=== PATIENT | male | born 1985 | race Caucasian/White ===

== ENCOUNTER 2017-11-12 15:33 | Emergency (ER) | payer OTHER ==
[2017-11-12] MEDS ORDERED: MORPHINE SULFATE 2 MG/ML SYRINGE IVP STA (16:01)
[2017-11-12] MEDS ORDERED: ONDANSETRON 4 MG/2 ML VIAL IVP STA (16:01)
[2017-11-12] MEDS ORDERED: SODIUM CHLORIDE 0.9% 1,000 ML IV STA (16:01)
--- NOTE | 2017-11-12 16:07 | ED ---
General Adult HPI <Carson Carey - Last Filed: 11/12/17 18:51> - General Source: patient, family, RN notes reviewed Mode of arrival: ambulatory Limitations: no limitations <Wei Valladares - Last Filed: 11/12/17 18:58> - General Chief complaint: Abdominal Pain Stated complaint: severe abd pain; nausea; constipation Time Seen by Provider: 11/12/17 15:52 - History of Present Illness Initial comments: Patient 31-year-old male significant past medical history for kidney transplant , presenting to the emergency room today with a chief complaint of increased abdominal pain over the last hour and a half. Does not that he was at work just driving when he began having increased pain in the middle of his abdomen. Patient does admit that he feels like the pain comes in waves. Currently rates it a 7/10. Does admit that he can feel a hard spot in the skin just above the bellybutton. Patient denies any other complaints. Patient also admits that he felt somewhat constipated earlier today. Patient denies any other complaints. States he did have bowel movement today. (Wei Valladares) - Related Data Home Medications Medication Instructions Recorded Confirmed Carvedilol [Coreg] 12.5 mg PO BID 12/31/14 11/12/17 Mycophenolate Mofetil [Cellcept] 1,000 mg PO BID 12/31/14 11/12/17 Tacrolimus [Prograf] 1 mg PO HS 12/31/14 11/12/17 Tacrolimus [Prograf] 2 mg PO DAILY 12/31/14 11/12/17 amLODIPine [Norvasc] 10 mg PO DAILY 12/31/14 11/12/17 Allergies Allergy/AdvReac Type Severity Reaction Status Date / Time Iodinated Contrast- Oral and Allergy Unknown Verified 11/12/17 15:44 IV Dye [Iodinated Contrast Media - IV Dye] shellfish derived [Shellfish] Allergy Unknown Verified 11/12/17 15:44 Review of Systems ROS Other: All systems not noted in ROS Statement are negative. <Carson Carey - Last Filed: 11/12/17 18:51> ROS Other: All systems not noted in ROS Statement are negative. <Wei Valladares - Last Filed: 11/12/17 18:58> ROS Statement: Those systems with pertinent positive or pertinent negative responses have been documented in the HPI. Past Medical History Past Medical History: Hypertension, Renal Disease History of Any Multi-Drug Resistant Organisms: None Reported Additional Past Surgical History / Comment(s): kidney transplant, peritoneal diaysis cath Past Psychological History: Anxiety, Depression Smoking Status: Never smoker Past Alcohol Use History: None Reported Past Drug Use History: None Reported <Wei Valladares - Last Filed: 11/12/17 18:58> General Exam <Carson Carey - Last Filed: 11/12/17 18:51> Limitations: no limitations <Wei Valladares - Last Filed: 11/12/17 18:58> - General Exam Comments Initial Comments: General: The patient is awake and alert, in mild distress. Eye: Pupils are equal, round and reactive to light, extra-ocular movements are intact. No nystagmus. There is normal conjunctiva bilaterally. No signs of icterus. Ears, nose, mouth and throat: There are moist mucous membranes and no oral lesions. Neck: The neck is supple, there is no tenderness or JVD. Cardiovascular: There is a regular rate and rhythm. No murmur, rub or gallop is appreciated. Respiratory: Lungs are clear to auscultation, respirations are non-labored, breath sounds are equal. No wheezes, stridor, rales, or rhonchi. Gastrointestinal: Abdomen soft on palpation. Mild tenderness midline just below the umbilicus. Hernia palpated just above the umbilicus No rebound, guarding, CVA tenderness Musculoskeletal: Normal ROM, no tenderness. Strength 5/5. Sensation intact. Pulses equal bilaterally 2+. Neurological: A&O x 3. CN II-XII intact, There are no obvious motor or sensory deficits. Coordination appears grossly intact. Speech is normal. Skin: Skin is warm and dry and no rashes or lesions are noted. Psychiatric: Cooperative, appropriate mood & affect, normal judgment. (Wei Valladares) Course <Carson Carey - Last Filed: 11/12/17 18:51> <Wei Valladares - Last Filed: 11/12/17 18:58> Vital Signs 11/12/17 11/12/17 15:44 18:52 Temperature 98.3 F 97.9 F Pulse Rate 96 86 Respiratory 20 18 Rate Blood Pressure 133/92 126/76 O2 Sat by Pulse 99 98 Oximetry - Reevaluation(s) Reevaluation #1: 11/12/17 18:51 PA supervision did personally do a [id number] evaluation the patient did examine him. It is time I examination he was pain-free no evidence of any hernia at this time. Computed tomography scan did show thickened pain. Umbilical hernia which demonstrates induration of fat and a degree of mild inflammatory change discuss the case with Dr. Diaz. Patient be discharged with follow-up. (Carson Carey) Medical Decision Making - Lab Data Result diagrams: 11/12/17 14:15 11/12/17 14:15 <Carson Carey - Last Filed: 11/12/17 18:51> - Lab Data Result diagrams: 11/12/17 14:15 11/12/17 14:15 <Wei Valladares - Last Filed: 11/12/17 18:58> - Medical Decision Making Patient's CT of the abdomen and pelvis reviewed shows 1. There is a fat- containing periumbilical hernia which demonstrates induration of that and reactive mild inflammatory change. 2. Prominence of the small bowel loops in the left abdomen without definite transition point. Differential diagnosis included a localized ileus or enteritis. Case was discussed with attending physician Dr. Aurelio ortez at bedside. Discussed case with surgery insulation batting machine operator Dr. hancock with this time recommends the patient may follow-up in the office. Patient's hernia was able to be reduced here in the emergency room after pain medication. He is feeling comfortable at this time. (Wei Valladares) - Lab Data Lab Results 11/12/17 11/12/17 Range/Units 14:15 14:15 WBC 5.3 (3.8-10.6) k/uL RBC 5.39 (4.30-5.90) m/uL Hgb 16.0 (13.0-17.5) gm/dL Hct 47.6 (39.0-53.0) % MCV 88.2 (80.0-100.0) fL MCH 29.7 (25.0-35.0) pg MCHC 33.6 (31.0-37.0) g/dL RDW 13.4 (11.5-15.5) % Plt Count 257 (150-450) k/uL Neutrophils % 70 % Lymphocytes % 15 % Monocytes % 8 % Eosinophils % 5 % Basophils % 0 % Neutrophils # 3.7 (1.3-7.7) k/uL Lymphocytes # 0.8 L (1.0-4.8) k/uL Monocytes # 0.4 (0-1.0) k/uL Eosinophils # 0.3 (0-0.7) k/uL Basophils # 0.0 (0-0.2) k/uL Sodium 142 (137-145) mmol/L Potassium 3.7 (3.5-5.1) mmol/L Chloride 103 (98-107) mmol/L Carbon Dioxide 23 (22-30) mmol/L Anion Gap 16 mmol/L BUN 8 L (9-20) mg/dL Creatinine 0.84 (0.66-1.25) mg/dL Est GFR (CKD-EPI)AfAm >90 (>60 ml/min/1.73 sqM) Est GFR (CKD-EPI)NonAf >90 (>60 ml/min/1.73 sqM) Glucose 104 H (74-99) mg/dL Calcium 9.8 (8.4-10.2) mg/dL Total Bilirubin 0.7 (0.2-1.3) mg/dL AST 25 (17-59) U/L ALT 32 (21-72) U/L Alkaline Phosphatase 72 (38-126) U/L Total Protein 7.6 (6.3-8.2) g/dL Albumin 4.8 (3.5-5.0) g/dL Amylase 53 (30-110) U/L Lipase 70 (23-300) U/L Disposition <Carson Carey - Last Filed: 11/12/17 18:51> Is patient prescribed a controlled substance at d/c from ED?: No Time of Disposition: 18:56 <Wei Valladares - Last Filed: 11/12/17 18:58> Clinical Impression: Umbilical hernia Disposition: HOME SELF-CARE Condition: Good Instructions: Umbilical Hernia (ED) Additional Instructions: Please follow-up with the family doctor and general surgeon as discussed. Please hold pressure to the area few have to cough, sneeze, or should movements. No heavy lifting. Please return to emergency room if symptoms increase worsen or for concerns as discussed. Referrals: Tripp Crowley DO [Primary Care Provider] - 1-2 days Wei Diaz MD [Medical Doctor] - 1-2 days Kody Mena MD [STAFF PHYSICIAN] - 1-2 days
[2017-11-12 16:24] LABS: Basophils % (A) 0 %; Eosinophils # (A) 0.3 k/uL (0-0.7); Eosinophils % (A) 5 %; HCT 47.6 % (39.0-53.0); Lymphocytes # (A) 0.8 k/uL (1.0-4.8); Lymphocytes % (A) 15 %; MCH 29.7 pg (25.0-35.0); MCHC 33.6 g/dL (31.0-37.0); MCV 88.2 fL (80.0-100.0); Mean Platelet Volume 6.7; Monocytes # (A) 0.4 k/uL (0-1.0); Monocytes % (A) 8 %; Neutrophils # (A) 3.7 k/uL (1.3-7.7); Neutrophils % (A) 70 %; Platelet Count 257 k/uL (150-450); RBC 5.39 m/uL (4.30-5.90); RDW 13.4 % (11.5-15.5); WBC 5.3 k/uL (3.8-10.6)
[2017-11-12 16:44] LABS: ALT 32 U/L (21-72); AST 25 U/L (17-59); Albumin 4.8 g/dL (3.5-5.0); Alkaline Phosphatase 72 U/L (38-126); Amylase 53 U/L (30-110); Anion Gap 16 mmol/L; Blood Urea Nitrogen 8 mg/dL (9-20); Calcium 9.8 mg/dL (8.4-10.2); Carbon Dioxide 23 mmol/L (22-30); Chloride 103 mmol/L (98-107); Glucose 104 mg/dL (74-99); Lipase 70 U/L (23-300); Potassium 3.7 mmol/L (3.5-5.1); Sodium 142 mmol/L (137-145); Total Bilirubin 0.7 mg/dL (0.2-1.3); Total Protein 7.6 g/dL (6.3-8.2)
--- NOTE | 2017-11-12 17:48 | CT ---
EXAMINATION TYPE: CT abdomen pelvis wo con DATE OF EXAM: 11/12/2017 COMPARISON: NONE HISTORY: Umbilical abdominal pain, nausea and constipation. CT DLP: 1322.2 mGycm Automated exposure control for dose reduction was used. TECHNIQUE: Helical acquisition of images was performed from the lung bases through the pelvis. FINDINGS: LUNG BASES: Subsegmental changes at both lung bases are suggestive of atelectasis. LIVER/GB: No significant abnormality is appreciated. PANCREAS: No significant abnormality is seen. SPLEEN: No significant abnormality is seen. ADRENALS: No significant abnormality is seen. KIDNEYS: . Kidneys are virtually nonrecognizable compatible with severe chronic medical renal disease . No evidence of hydronephrosis within the renal transplant within the left pelvis. There is a calcif ication within the cortex of the atrophic right kidney and a 1 cm hypodense lesion too small to olive cterize by noncontrast technique. FREE AIR: No free air is visualized URINARY BLADDER: No significant abnormality is seen. ADENOPATHY: None visualized. OSSEOUS STRUCTURES: No significant abnormality is seen. BOWEL: There are dilated bowel loops in the midabdomen on the left. No definite inflammatory changes . OTHER: There is a fat-containing periumbilical hernia. The fat appears to be indurated correlate for inflammation. IMPRESSION: 1. There is a fat-containing periumbilical hernia which demonstrates induration of fat and a degree o f mild inflammatory change. Correlate clinically. 2. Prominence of small bowel loops in the left abdomen without definite transition point. Differentia l diagnosis would include a localized ileus or enteritis. Correlate clinically. Renal transplant with no diagnostic evidence of obstruction.
[2017-11-12 18:56] LABS: Appearance,Urine Clear (Clear); Bilirubin,Urine Negative (Negative); Blood,Urine Negative (Negative); Color,Urine Light Yellow; Glucose,Urine (UA) Negative (Negative); Ketones,Urine Negative (Negative); Leukocyte Esterase,Urine Negative (Negative); Nitrite,Urine Negative (Negative); PH, Urine 7.5 (5.0-8.0); Protein,Urine Negative (Negative); Urobilinogen,Urine <2.0 mg/dL (<2.0)
[2017-11-12 19:18] VITALS: BP 112/61; PULSE 78; RESP 16; TEMP 98.2
== END 2017-11-12 19:18 | disposition home or self-care (01) ==
LOC: EC 15:33
DX: K42.9 Umbilical hernia without obstruction or gangrene (principal); K59.00 Constipation, unspecified; I12.9 Hypertensive chronic kidney disease with stage 1 through stage 4 chronic kidney disease, or unspecified chronic kidney disease; N18.9 Chronic kidney disease, unspecified; Z94.0 Kidney transplant status; Z79.899 Other long term (current) drug therapy; Z91.013 Allergy to seafood; Z91.041 Radiographic dye allergy status
CPT/HCPCS: 36415; 80053; 82150; 83690; 85025; 81003; 74176; 99284; 96374; 96375; 96361 ×2; J2405; J2270

== ENCOUNTER 2018-03-01 11:26 | Emergency (ER) | payer OTHER ==
[2018-03-01 11:38] VITALS: TEMP 98.2
--- NOTE | 2018-03-01 12:07 | ED ---
General Adult HPI - General Chief complaint: Recheck/Abnormal Lab/Rx Stated complaint: High Blood Pressure Time Seen by Provider: 03/01/18 11:58 Source: patient, RN notes reviewed Mode of arrival: ambulatory Limitations: no limitations - History of Present Illness Initial comments: This a 32-year-old male presents emergency Department chief complaint of denies is not feeling right. Patient states he woke up this morning felt shaky and states that he's had some sinus congestion. Patient states that he is concerned that his blood pressure may be elevated states that he checked it was 150/80 something. Patient states that he has a history of renal transplant and is on 3 different blood pressure medications. He states he was concerned taking the emergency department. Patient denies any current chest pain, shortness breath, headache, dizziness, blurred vision, abdominal pain, nausea vomiting. Patient states his renal transplant was 5 years ago. - Related Data Home Medications Medication Instructions Recorded Confirmed Carvedilol [Coreg] 12.5 mg PO BID 12/31/14 11/12/17 Mycophenolate Mofetil [Cellcept] 1,000 mg PO BID 12/31/14 11/12/17 Tacrolimus [Prograf] 1 mg PO HS 12/31/14 11/12/17 Tacrolimus [Prograf] 2 mg PO DAILY 12/31/14 11/12/17 amLODIPine [Norvasc] 10 mg PO DAILY 12/31/14 11/12/17 Allergies Allergy/AdvReac Type Severity Reaction Status Date / Time Iodinated Contrast- Oral and Allergy Unknown Verified 11/12/17 15:44 IV Dye [Iodinated Contrast Media - IV Dye] shellfish derived [Shellfish] Allergy Unknown Verified 11/12/17 15:44 Review of Systems ROS Statement: Those systems with pertinent positive or pertinent negative responses have been documented in the HPI. ROS Other: All systems not noted in ROS Statement are negative. Past Medical History Past Medical History: Hypertension, Renal Disease Additional Past Medical History / Comment(s): kidney transplant dialysis in past History of Any Multi-Drug Resistant Organisms: None Reported Additional Past Surgical History / Comment(s): kidney transplant, peritoneal diaysis cath Past Psychological History: Anxiety, Depression Smoking Status: Never smoker Past Alcohol Use History: None Reported Past Drug Use History: None Reported General Exam Limitations: no limitations General appearance: alert, in no apparent distress Head exam: Present: atraumatic, normocephalic, normal inspection Eye exam: Present: normal appearance, PERRL, EOMI. Absent: scleral icterus, conjunctival injection, periorbital swelling ENT exam: Present: normal exam, mucous membranes moist Neck exam: Present: normal inspection. Absent: tenderness, meningismus, lymphadenopathy Respiratory exam: Present: normal lung sounds bilaterally. Absent: respiratory distress, wheezes, rales, rhonchi, stridor Cardiovascular Exam: Present: regular rate, normal rhythm, normal heart sounds. Absent: systolic murmur, diastolic murmur, rubs, gallop, clicks GI/Abdominal exam: Present: soft, normal bowel sounds. Absent: distended, tenderness, guarding, rebound, rigid Back exam: Absent: CVA tenderness (R), CVA tenderness (L) Neurological exam: Present: alert, oriented X3, CN II-XII intact, reflexes normal. Absent: motor sensory deficit Skin exam: Present: warm, dry, intact, normal color. Absent: rash Course Vital Signs 03/01/18 03/01/18 11:35 12:38 Temperature 98.2 F Pulse Rate 103 H 86 Respiratory 18 19 Rate Blood Pressure 142/85 139/84 O2 Sat by Pulse 99 98 Oximetry Medical Decision Making - Medical Decision Making 32-year-old male presents emergency from conservative her hypertension. Patient blood pressure is elevated this time. Patient had lab work secondary to his history of renal failure. Lab work is unremarkable. Patient has no signs of infection has normal vitals. Patient will be discharged return parameters discussed. - Lab Data Result diagrams: 03/01/18 12:33 03/01/18 12:33 Lab Results 03/01/18 03/01/18 03/01/18 Range/Units 12:33 12:33 12:40 WBC 7.6 (3.8-10.6) k/uL RBC 5.40 (4.30-5.90) m/uL Hgb 16.2 (13.0-17.5) gm/dL Hct 48.9 (39.0-53.0) % MCV 90.6 (80.0-100.0) fL MCH 30.0 (25.0-35.0) pg MCHC 33.2 (31.0-37.0) g/dL RDW 13.2 (11.5-15.5) % Plt Count 273 (150-450) k/uL Neutrophils % 82 % Lymphocytes % 9 % Monocytes % 7 % Eosinophils % 2 % Basophils % 0 % Neutrophils # 6.2 (1.3-7.7) k/uL Lymphocytes # 0.7 L (1.0-4.8) k/uL Monocytes # 0.5 (0-1.0) k/uL Eosinophils # 0.1 (0-0.7) k/uL Basophils # 0.0 (0-0.2) k/uL Sodium 140 (137-145) mmol/L Potassium 4.3 (3.5-5.1) mmol/L Chloride 106 (98-107) mmol/L Carbon Dioxide 27 (22-30) mmol/L Anion Gap 7 mmol/L BUN 10 (9-20) mg/dL Creatinine 0.84 (0.66-1.25) mg/dL Est GFR (CKD-EPI)AfAm >90 (>60 ml/min/1.73 sqM) Est GFR (CKD-EPI)NonAf >90 (>60 ml/min/1.73 sqM) Glucose 102 H (74-99) mg/dL Calcium 10.1 (8.4-10.2) mg/dL Magnesium 1.8 (1.6-2.3) mg/dL Total Bilirubin 0.4 (0.2-1.3) mg/dL AST 28 (17-59) U/L ALT 30 (21-72) U/L Alkaline Phosphatase 86 (38-126) U/L Total Protein 8.3 H (6.3-8.2) g/dL Albumin 4.7 (3.5-5.0) g/dL Amylase 64 (30-110) U/L Lipase 269 (23-300) U/L TSH 2.310 (0.465-4.680) mIU/L Urine Color Colorless Urine Appearance Clear (Clear) Urine pH 7.0 (5.0-8.0) Ur Specific [place] 1.004 (1.001-1.035) Urine Protein Negative (Negative) Urine Glucose (UA) Negative (Negative) Urine Ketones Negative (Negative) Urine Blood Negative (Negative) Urine Nitrite Negative (Negative) Urine Bilirubin Negative (Negative) Urine Urobilinogen <2.0 (<2.0) mg/dL Ur Leukocyte Esterase Negative (Negative) Disposition Clinical Impression: Encounter for blood pressure examination, Malaise, Hx of kidney transplant Disposition: HOME SELF-CARE Condition: Stable Instructions: Hypertension (ED) Additional Instructions: Please return to the Emergency Department if symptoms worsen or any other concerns. Is patient prescribed a controlled substance at d/c from ED?: No Referrals: Tripp Crowley DO [Primary Care Provider] - 1-2 days Time of Disposition: 13:44
[2018-03-01 13:03] LABS: Basophils % (A) 0 %; Eosinophils # (A) 0.1 k/uL (0-0.7); Eosinophils % (A) 2 %; HCT 48.9 % (39.0-53.0); HGB 16.2 gm/dL (13.0-17.5); Lymphocytes # (A) 0.7 k/uL (1.0-4.8); Lymphocytes % (A) 9 %; MCHC 33.2 g/dL (31.0-37.0); MCV 90.6 fL (80.0-100.0); Mean Platelet Volume 6.9; Monocytes # (A) 0.5 k/uL (0-1.0); Monocytes % (A) 7 %; Neutrophils # (A) 6.2 k/uL (1.3-7.7); Neutrophils % (A) 82 %; Platelet Count 273 k/uL (150-450); RDW 13.2 % (11.5-15.5); WBC 7.6 k/uL (3.8-10.6)
[2018-03-01 13:07] LABS: Appearance,Urine Clear (Clear); Bilirubin,Urine Negative (Negative); Blood,Urine Negative (Negative); Color,Urine Colorless; Glucose,Urine (UA) Negative (Negative); Ketones,Urine Negative (Negative); Leukocyte Esterase,Urine Negative (Negative); Nitrite,Urine Negative (Negative); Protein,Urine Negative (Negative); Specific Gravity,Urine 1.004 (1.001-1.035); Urobilinogen,Urine <2.0 mg/dL (<2.0)
[2018-03-01 13:07] LABS: ALT 30 U/L (21-72); AST 28 U/L (17-59); Albumin 4.7 g/dL (3.5-5.0); Alkaline Phosphatase 86 U/L (38-126); Amylase 64 U/L (30-110); Anion Gap 7 mmol/L; Blood Urea Nitrogen 10 mg/dL (9-20); Calcium 10.1 mg/dL (8.4-10.2); Carbon Dioxide 27 mmol/L (22-30); Chloride 106 mmol/L (98-107); Glucose 102 mg/dL (74-99); Lipase 269 U/L (23-300); Magnesium 1.8 mg/dL (1.6-2.3); Potassium 4.3 mmol/L (3.5-5.1); Sodium 140 mmol/L (137-145); Total Bilirubin 0.4 mg/dL (0.2-1.3); Total Protein 8.3 g/dL (6.3-8.2)
[2018-03-01 13:54] VITALS: BP 121/75; PULSE 97; RESP 18
== END 2018-03-01 13:54 | disposition home or self-care (01) ==
LOC: EC 11:26
DX: I10 Essential (primary) hypertension (principal); R53.83 Other fatigue; Z94.0 Kidney transplant status; Z79.899 Other long term (current) drug therapy; Z91.041 Radiographic dye allergy status; Z91.013 Allergy to seafood
CPT/HCPCS: 36415; 80053; 81003; 82150; 83690; 83735; 84443; 85025; 99283

== ENCOUNTER 2018-09-03 18:10 | Emergency (ER) | payer OTHER ==
[2018-09-03 18:43] VITALS: BP 152/99; PULSE 103; RESP 18; TEMP 98.7
[2018-09-03] MEDS ORDERED: FAMOTIDINE 20 MG TAB PO STA (18:59)
[2018-09-03] MEDS ORDERED: diphenhydrAMINE 50 MG CAP PO STA (18:59)
--- NOTE | 2018-09-03 19:10 | ED ---
Skin/Abscess/FB HPI - General Chief complaint: Skin/Abscess/Foreign Body Stated complaint: Rash Time Seen by Provider: 09/03/18 18:44 Source: patient, RN notes reviewed, old records reviewed Mode of arrival: ambulatory Limitations: no limitations - History of Present Illness Initial comments: Patient is a 32 year old female whom presents today with pruritic rash over back, arms and hands today. Patient reports no new exposures. Patient reports that he has been scratching at this back and arms. History of kidney transplant a few years ago, and reports he is on immunosuppressant medication. Patient has no fevers, chills, nausea or vomiting. - Related Data Home Medications Medication Instructions Recorded Confirmed Mycophenolate Mofetil [Cellcept] 1,000 mg PO BID 12/31/14 09/03/18 Tacrolimus [Prograf] 1 mg PO HS 12/31/14 09/03/18 Tacrolimus [Prograf] 2 mg PO DAILY 12/31/14 09/03/18 amLODIPine [Norvasc] 10 mg PO DAILY 12/31/14 09/03/18 Acetaminophen Tab [Tylenol] 325 mg PO DAILY 09/03/18 09/03/18 Citalopram Hydrobromide [CeleXA] 5 mg PO DAILY 09/03/18 09/03/18 Enalapril [Vasotec] 10 mg PO HS 09/03/18 09/03/18 Previous Rx's Medication Instructions Recorded Famotidine [Pepcid] 20 mg PO BID #10 tablet 09/03/18 Hydrocortisone Cream 1 applic TOPICAL QID #60 gm 09/03/18 [Hydrocortisone 1% Cream] diphenhydrAMINE [Benadryl] 25 mg PO QID PRN #20 capsule 09/03/18 Allergies Allergy/AdvReac Type Severity Reaction Status Date / Time Iodinated Contrast- Oral and Allergy Unknown Verified 09/03/18 19:03 IV Dye [Iodinated Contrast Media - IV Dye] Mushroom Allergy Swelling Verified 09/03/18 19:09 shellfish derived [Shellfish] Allergy Unknown Verified 09/03/18 19:03 Review of Systems ROS Statement: Those systems with pertinent positive or pertinent negative responses have been documented in the HPI. ROS Other: All systems not noted in ROS Statement are negative. Past Medical History Past Medical History: Hypertension, Renal Disease Additional Past Medical History / Comment(s): kidney transplant dialysis in past History of Any Multi-Drug Resistant Organisms: None Reported Additional Past Surgical History / Comment(s): kidney transplant, peritoneal diaysis cath Past Psychological History: Anxiety, Depression Smoking Status: Never smoker Past Alcohol Use History: None Reported Past Drug Use History: None Reported General Exam - General Exam Comments Initial Comments: This is a 32 year old male, no distress. Limitations: no limitations General appearance: alert, in no apparent distress Head exam: Present: atraumatic, normocephalic, normal inspection Eye exam: Present: normal appearance, PERRL, EOMI. Absent: scleral icterus, conjunctival injection, periorbital swelling ENT exam: Present: normal exam, mucous membranes moist Neck exam: Present: normal inspection. Absent: tenderness, meningismus, lymphadenopathy Respiratory exam: Present: normal lung sounds bilaterally. Absent: respiratory distress, wheezes, rales, rhonchi, stridor Cardiovascular Exam: Present: regular rate, normal rhythm, normal heart sounds. Absent: systolic murmur, diastolic murmur, rubs, gallop, clicks GI/Abdominal exam: Present: soft, normal bowel sounds. Absent: distended, tenderness, guarding, rebound, rigid Extremities exam: Present: normal inspection, full ROM, normal capillary refill. Absent: tenderness, pedal edema, joint swelling, calf tenderness Back exam: Present: normal inspection Neurological exam: Present: alert, oriented X3, CN II-XII intact Psychiatric exam: Present: normal affect, normal mood Skin exam: Present: warm, dry, intact, normal color, rash (hives over back) Course Vital Signs 09/03/18 18:40 Temperature 98.7 F Pulse Rate 103 H Respiratory 18 Rate Blood Pressure 152/99 O2 Sat by Pulse 98 Oximetry Medical Decision Making - Medical Decision Making 32 year old male pressents today with hives over back, unknown new exposure. He is on immunosuppressant, therefore want to avoid oral steriod at this time. Patient will be treated with benadryl, and pepcid, and topical steroid. Discussed follow up with PCP and retur parameters discussed. Disposition Clinical Impression: Urticaria Disposition: HOME SELF-CARE Condition: Good Instructions (If sedation given, give patient instructions): Urticaria (ED) Additional Instructions: Patient advised to follow-up with your primary care doctor. Avoid any significant allergens. Return to emergency department if any alarming signs or symptoms occur. Patient should apply steroid cream over the areas. Prescriptions: diphenhydrAMINE [Benadryl] 25 mg PO QID PRN #20 capsule PRN Reason: Itching Hydrocortisone Cream [Hydrocortisone 1% Cream] 1 applic TOPICAL QID #60 gm Famotidine [Pepcid] 20 mg PO BID #10 tablet Is patient prescribed a controlled substance at d/c from ED?: No Referrals: Tripp Crowley DO [Primary Care Provider] - 1-2 days Time of Disposition: 19:05
== END 2018-09-03 19:29 | disposition home or self-care (01) ==
LOC: EC 18:10
DX: L50.9 Urticaria, unspecified (principal); I10 Essential (primary) hypertension; F41.9 Anxiety disorder, unspecified; F32.9 Major depressive disorder, single episode, unspecified; Z79.899 Other long term (current) drug therapy; Z91.013 Allergy to seafood; Z91.018 Allergy to other foods; Z91.041 Radiographic dye allergy status; Z94.0 Kidney transplant status; Z99.2 Dependence on renal dialysis
CPT/HCPCS: 99283

== ENCOUNTER 2019-03-06 19:16 | Emergency (ER) | payer OTHER ==
[2019-03-06 20:04] VITALS: RESP 18
--- NOTE | 2019-03-06 20:55 | ED ---
General Adult HPI - General Chief complaint: Headache Stated complaint: Headache, Dizziness, light headed Time Seen by Provider: 03/06/19 20:38 Source: patient Mode of arrival: ambulatory Limitations: no limitations - History of Present Illness Initial comments: This 33-year-old white male presents with a complaint of some nasal congestion, slight cough, and headache. He states that the headache is in his upper sinus region. He's had some whitish production with his cough. He has felt hot at times but denies any actual known fevers seen does not have a thermometer. His symptoms have been present for the last 2 days. He denies any shortness of breath or chest pain. He denies any other complaints or modifying factors. He does relate that he ran out of his blood pressure medications and normally will take Norvasc 10 mg daily and Vasotec 10 mg daily - Related Data Home Medications Medication Instructions Recorded Confirmed Mycophenolate Mofetil [Cellcept] 1,000 mg PO BID 12/31/14 03/06/19 Tacrolimus [Prograf] 1 mg PO HS 12/31/14 03/06/19 Tacrolimus [Prograf] 2 mg PO DAILY 12/31/14 03/06/19 amLODIPine [Norvasc] 10 mg PO DAILY 12/31/14 03/06/19 Acetaminophen Tab [Tylenol] 325 mg PO DAILY 09/03/18 03/06/19 Citalopram Hydrobromide [CeleXA] 5 mg PO DAILY 09/03/18 03/06/19 Enalapril [Vasotec] 10 mg PO HS 09/03/18 03/06/19 Ergocalciferol (Vitamin D2) 50,000 unit PO GAUTHIER 03/06/19 03/06/19 [Drisdol] Previous Rx's Medication Instructions Recorded Amoxic-Pot Clav 875-125Mg 1 each PO Q12HR #20 tablet 03/06/19 [Augmentin Xr 875-125] Enalapril Maleate [Vasotec] 10 mg PO DAILY #30 tab 03/06/19 Fluticasone Nasal [place] [Flonase 2 spr EA NOSTRIL DAILY #1 bottle 03/06/19 Nasal [place]] amLODIPine BESYLATE [Norvasc] 10 mg PO DAILY #30 tablet 03/06/19 Allergies Allergy/AdvReac Type Severity Reaction Status Date / Time Iodinated Contrast Media Allergy Unknown Verified 03/06/19 20:24 [Iodinated Contrast Media - IV Dye] Mushroom Allergy Swelling Verified 03/06/19 20:24 shellfish derived [Shellfish] Allergy Unknown Verified 03/06/19 20:24 Review of Systems ROS Statement: Those systems with pertinent positive or pertinent negative responses have been documented in the HPI. ROS Other: All systems not noted in ROS Statement are negative. Past Medical History Past Medical History: Hypertension, Renal Disease Additional Past Medical History / Comment(s): kidney transplant dialysis in past History of Any Multi-Drug Resistant Organisms: None Reported Additional Past Surgical History / Comment(s): kidney transplant, peritoneal diaysis cath Past Psychological History: Anxiety, Depression Smoking Status: Never smoker Past Alcohol Use History: None Reported Past Drug Use History: None Reported, Marijuana General Exam - General Exam Comments Initial Comments: GENERAL: The patient is well nourished and well hydrated. VITAL SIGNS: Heart rate, blood pressure, respiratory rate reviewed as recorded in nurse's notes. EYES: Pupils are round and reactive. Extraocular movements are intact. No conjunctival / lid redness or swelling. ENT: No external evidence of injury, swelling, or ecchymosis. Airway is patent. There is some mild posterior oropharyngeal erythema likely due to postnasal drip. There is moderate nasal congestion noted. There is some tenderness over the maxillary sinuses. NECK: Nontender. No swelling or evidence of injury. No subcutaneous emphysema. Trachea is midline. No thyroid mass. HEART: Regular rate and rhythm. Good peripheral pulses. LUNGS/CHEST: Breath sounds clear and equal bilaterally. No rales, rhonchi, or wheezes. No ecchymosis, subcutaneous emphysema, or tenderness. ABDOMEN: Abdomen soft without tenderness. No palpable masses or organomegaly. No peritoneal signs. No abdominal wall swelling or ecchymosis. EXTREMITIES: No extremity tenderness. Normal muscle tone and function. No thoracolumbar tenderness. NEUROLOGIC: Sensation is grossly intact. Cranial nerve exam reveals face is symmetrical, tongue is midline, speech is clear. SKIN: No abrasions or ecchymosis is noted. No induration or masses noted. PSYCHIATRIC: Alert and oriented. Appropriate behavior and judgment. Limitations: no limitations Course Vital Signs 03/06/19 20:02 Temperature 98.4 F Pulse Rate 103 H Respiratory 18 Rate Blood Pressure 154/97 O2 Sat by Pulse 96 Oximetry Medical Decision Making - Medical Decision Making The patient is seen and examined. It is felt as though he has a sinus headache. He will be treated for this. He also needs his blood pressure medication refilled. It is felt as though he stable for discharge with the following disposition and he leaves in no identifiable distress. Disposition Clinical Impression: Sinus headache, Sinusitis, Hypertension Disposition: HOME SELF-CARE Condition: Good Instructions (If sedation given, give patient instructions): Sinusitis (ED), Acute Headache (ED), Hypertension (ED) Prescriptions: Amoxic-Pot Clav 875-125Mg [Augmentin Xr 875-125] 1 each PO Q12HR #20 tablet Fluticasone Nasal [place] [Flonase Nasal [place]] 2 spr EA NOSTRIL DAILY #1 bottle amLODIPine BESYLATE [Norvasc] 10 mg PO DAILY #30 tablet Enalapril Maleate [Vasotec] 10 mg PO DAILY #30 tab Is patient prescribed a controlled substance at d/c from ED?: No Referrals: Tripp Crowley DO [Primary Care Provider] - 1-2 days Time of Disposition: 20:54
[2019-03-06 21:43] VITALS: BP 153/94; PULSE 96; TEMP 98.6
== END 2019-03-06 21:43 | disposition home or self-care (01) ==
LOC: EC 19:16
DX: J32.9 Chronic sinusitis, unspecified (principal); I10 Essential (primary) hypertension; F32.9 Major depressive disorder, single episode, unspecified; F41.9 Anxiety disorder, unspecified; Z91.013 Allergy to seafood; Z91.018 Allergy to other foods; Z91.041 Radiographic dye allergy status; Z79.891 Long term (current) use of opiate analgesic; Z79.899 Other long term (current) drug therapy; Z94.0 Kidney transplant status
CPT/HCPCS: 99283

== ENCOUNTER 2019-07-08 16:53 | Emergency (ER) | payer OTHER ==
[2019-07-08 17:06] VITALS: BP 145/95; PULSE 98; RESP 18; TEMP 98.4
[2019-07-08] MEDS ORDERED: LIDOCAINE 1% INJ 10MG/ML (20 ML MDV) SQ ONE (17:09)
--- NOTE | 2019-07-08 17:48 | ED ---
General Adult HPI - General Source: patient, RN notes reviewed Mode of arrival: ambulatory Limitations: no limitations <Mitchell Barlow - Last Filed: 07/08/19 17:45> <Sally Eubanks - Last Filed: 07/10/19 22:21> - General Chief complaint: Wound/Laceration Stated complaint: Wrist laceration Time Seen by Provider: 07/08/19 17:08 - History of Present Illness Initial comments: 33-year-old male presents to the emergency department for a chief of laceration. Patient states he was using a new utility knife when he accidentally cut his right arm. Patient states he was not sure if it needed stitches so came to the emergency department. Patient states his tetanus is up-to-date in the past 5 years. He denies any difficulty moving his fingers. Denies any numbness in the fingers or hand. Patient did have a kidney transplant several years ago and is on immunosuppressants.Patient has no other complaints at this time including shortness of breath, chest pain, abdominal pain, nausea or vomiting, headache, or visual changes. (Mitchell Barlow) - Related Data Home Medications Medication Instructions Recorded Confirmed Mycophenolate Mofetil [Cellcept] 1,000 mg PO BID 12/31/14 03/06/19 Tacrolimus [Prograf] 1 mg PO HS 12/31/14 03/06/19 Tacrolimus [Prograf] 2 mg PO DAILY 12/31/14 03/06/19 amLODIPine [Norvasc] 10 mg PO DAILY 12/31/14 03/06/19 Acetaminophen Tab [Tylenol] 325 mg PO DAILY 09/03/18 03/06/19 Citalopram Hydrobromide [CeleXA] 5 mg PO DAILY 09/03/18 03/06/19 Enalapril [Vasotec] 10 mg PO HS 09/03/18 03/06/19 Ergocalciferol (Vitamin D2) 50,000 unit PO GAUTHIER 03/06/19 03/06/19 [Drisdol] Previous Rx's Medication Instructions Recorded Amoxic-Pot Clav 875-125Mg 1 each PO Q12HR #20 tablet 03/06/19 [Augmentin Xr 875-125] Enalapril Maleate [Vasotec] 10 mg PO DAILY #30 tab 03/06/19 Fluticasone Nasal [place] [Flonase 2 spr EA NOSTRIL DAILY #1 bottle 03/06/19 Nasal [place]] amLODIPine BESYLATE [Norvasc] 10 mg PO DAILY #30 tablet 03/06/19 Allergies Allergy/AdvReac Type Severity Reaction Status Date / Time Iodinated Contrast Media Allergy Unknown Verified 07/08/19 17:02 [Iodinated Contrast Media - IV Dye] Mushroom Allergy Swelling Verified 07/08/19 17:02 shellfish derived [Shellfish] Allergy Unknown Verified 07/08/19 17:02 Review of Systems ROS Other: All systems not noted in ROS Statement are negative. <Mitchell Barlow P - Last Filed: 07/08/19 17:45> ROS Other: All systems not noted in ROS Statement are negative. <Sally Eubanks - Last Filed: 07/10/19 22:21> ROS Statement: Those systems with pertinent positive or pertinent negative responses have been documented in the HPI. Past Medical History Past Medical History: Hypertension, Renal Disease Additional Past Medical History / Comment(s): kidney transplant, dialysis in past History of Any Multi-Drug Resistant Organisms: None Reported Additional Past Surgical History / Comment(s): kidney transplant, peritoneal diaysis cath Past Psychological History: Anxiety, Depression Smoking Status: Current some day smoker Past Alcohol Use History: None Reported Past Drug Use History: Marijuana <Mitchell Barlow P - Last Filed: 07/08/19 17:45> General Exam Limitations: no limitations General appearance: alert, in no apparent distress Head exam: Present: atraumatic, normocephalic, normal inspection Eye exam: Present: normal appearance, PERRL, EOMI. Absent: scleral icterus, conjunctival injection, periorbital swelling ENT exam: Present: normal exam, mucous membranes moist Neck exam: Present: normal inspection. Absent: tenderness, meningismus, lymphadenopathy Respiratory exam: Present: normal lung sounds bilaterally. Absent: respiratory distress, wheezes, rales, rhonchi, stridor Cardiovascular Exam: Present: regular rate, normal rhythm, normal heart sounds. Absent: systolic murmur, diastolic murmur, rubs, gallop, clicks Extremities exam: Present: other (There is a 2 cm laceration noted on the radial aspect of the distal forearm. No deep structure injury. This is linear. Full range motion of all digits in the left hand. Capillary refill less than 2 seconds, sensation intact in the left upper extremity. Supervisor Hardboard strength 5 out of 5.) <Mitchell Barlow - Last Filed: 07/08/19 17:45> Course Vital Signs 07/08/19 17:02 Temperature 98.4 F Pulse Rate 98 Respiratory 18 Rate Blood Pressure 145/95 O2 Sat by Pulse 96 Oximetry Procedures - Laceration Laceration #1 Consent Obtained: verbal consent Indication: laceration Site: upper extremity Size (cm): 2 Description: linear Depth: simple, single layer Anesthetic Used: lidocaine 1% Anesthesia Technique: local infiltration Amount (mls): 4 Pre-repair: wound explored, irrigated extensively (With saline pressure irrigation) Type of Sutures: other ([place]) Size of Sutures: 5-0 Number of Sutures: 5 Technique: simple, interrupted Patient Tolerated Procedure: well, no complications <Mitchell Barlow - Last Filed: 07/08/19 17:45> Medical Decision Making <Mitchell Barlow - Last Filed: 07/08/19 17:45> <Sally Eubanks - Last Filed: 07/10/19 22:21> - Medical Decision Making Patient has a linear laceration noted to the radial aspect of the distal forearm. This was cleaned thoroughly with saline pressure irrigation. Sutures were applied. Neurovascular status intact in the right upper extremity. 5 sutures were applied and wound is now well approximated. Discussed monitoring for signs of infection and keeping it clean. Discussed returning in 7-10 days for suture removal. He will return earlier if he has any worsening symptoms and follow up in 2 days for a wound recheck. (Mitchell Barlow) I was available for consultation in the emergency department. The history and physical exam were done by the midlevel provider. I was consulted for this patients care. I reviewed the case with the midlevel provider and based on their presentation of the patient, I agree with the assessment, medical decision making and plan of care as documented. Chart was dictated using [employer] dictation software. Attempts were made to correct any dictation errors however some typographical errors may persist. (Sally Eubanks) Disposition Is patient prescribed a controlled substance at d/c from ED?: No Time of Disposition: 17:48 <Mitchell Barlow - Last Filed: 07/08/19 17:45> <Sally Eubanks Trip - Last Filed: 07/10/19 22:21> Clinical Impression: Laceration Disposition: HOME SELF-CARE Condition: Good Instructions (If sedation given, give patient instructions): Care For Your Stitches (ED), Laceration (ED) Additional Instructions: Please keep the area clean. Monitor for signs of infections at this spreading or streaking redness, drainage, or fever and return if these occur. Return if you have any other worsening symptoms. Return here in 7-10 days for suture removal. Otherwise follow-up with her doctor in 2 days for a recheck of the wound. Referrals: Tripp Crowley DO [Primary Care Provider] - 1-2 days
== END 2019-07-08 17:53 | disposition home or self-care (01) ==
LOC: EC 16:53
DX: S61.511A Laceration without foreign body of right wrist, initial encounter (principal); I10 Essential (primary) hypertension; F41.9 Anxiety disorder, unspecified; F32.9 Major depressive disorder, single episode, unspecified; F17.200 Nicotine dependence, unspecified, uncomplicated; Z79.899 Other long term (current) drug therapy; Z91.048 Other nonmedicinal substance allergy status; Z91.013 Allergy to seafood; Z91.018 Allergy to other foods; Z94.0 Kidney transplant status; W26.0XXA Contact with knife, initial encounter
CPT/HCPCS: 99282; 12001; J2001

== ENCOUNTER 2019-08-06 18:13 | Emergency (ER) | payer OTHER ==
[2019-08-06 18:31] VITALS: PULSE 83; TEMP 98.3
[2019-08-06] MEDS ORDERED: PANTOPRAZOLE 40 MG/10 ML VIAL IVP STA (19:12)
[2019-08-06] MEDS ORDERED: MORPHINE SULFATE 4 MG/ML SYRINGE IV STA (19:12)
[2019-08-06] MEDS ORDERED: ONDANSETRON 4 MG/2 ML VIAL IVP STA (19:12)
[2019-08-06] MEDS ORDERED: SODIUM CHLORIDE 0.9% 1,000 ML IV STA (19:12)
--- NOTE | 2019-08-06 19:14 | ED ---
Abdominal Pain HPI - General Chief Complaint: Abdominal Pain Stated Complaint: Abdominal pain Time Seen by Provider: 08/06/19 18:48 Source: patient, RN notes reviewed, old records reviewed Mode of arrival: ambulatory Limitations: no limitations - History of Present Illness Initial Comments: This is a 33-year-old male DF presents today for evaluation regards to abdominal pain epigastric abdominal pain some burning burning especially with eating food. No significant history of surgical disease, patient has had kidney transplant. He does currently taking chemotherapy. Patient is recent change in medications denying fevers mild nausea no vomiting no diarrhea. Nursing travel history no prior history of similar abdominal pain this epigastric abdominal pain 1 week no modifying factors. MD Complaint: abdominal pain (Epigastric) -: week(s) Location: epigastric Radiation: epigastric Migration to: no migration Severity: moderate Severity scale (1-10): 4 Quality: fullness, sharp Consistency: intermittent Improves With: eating Worsens With: nothing Associated Symptoms: nausea Treatments Prior to Arrival: NSAIDs - Related Data Home Medications Medication Instructions Recorded Confirmed Mycophenolate Mofetil [Cellcept] 1,000 mg PO BID 12/31/14 03/06/19 Tacrolimus [Prograf] 1 mg PO HS 12/31/14 03/06/19 Tacrolimus [Prograf] 2 mg PO DAILY 12/31/14 03/06/19 amLODIPine [Norvasc] 10 mg PO DAILY 12/31/14 03/06/19 Acetaminophen Tab [Tylenol] 325 mg PO DAILY 09/03/18 03/06/19 Citalopram Hydrobromide [CeleXA] 5 mg PO DAILY 09/03/18 03/06/19 Enalapril [Vasotec] 10 mg PO HS 09/03/18 03/06/19 Ergocalciferol (Vitamin D2) 50,000 unit PO GAUTHIER 03/06/19 03/06/19 [Drisdol] Previous Rx's Medication Instructions Recorded Amoxic-Pot Clav 875-125Mg 1 each PO Q12HR #20 tablet 03/06/19 [Augmentin Xr 875-125] Enalapril Maleate [Vasotec] 10 mg PO DAILY #30 tab 03/06/19 Fluticasone Nasal [place] [Flonase 2 spr EA NOSTRIL DAILY #1 bottle 03/06/19 Nasal [place]] amLODIPine BESYLATE [Norvasc] 10 mg PO DAILY #30 tablet 03/06/19 Allergies Allergy/AdvReac Type Severity Reaction Status Date / Time Iodinated Contrast Media Allergy Unknown Verified 08/06/19 18:31 [Iodinated Contrast Media - IV Dye] Mushroom Allergy Swelling Verified 08/06/19 18:31 shellfish derived [Shellfish] Allergy Unknown Verified 08/06/19 18:31 Review of Systems ROS Statement: Those systems with pertinent positive or pertinent negative responses have been documented in the HPI. ROS Other: All systems not noted in ROS Statement are negative. Past Medical History Past Medical History: Hypertension, Renal Disease Additional Past Medical History / Comment(s): kidney transplant, dialysis in past History of Any Multi-Drug Resistant Organisms: None Reported Additional Past Surgical History / Comment(s): kidney transplant, peritoneal diaysis cath Past Psychological History: Anxiety, Depression Smoking Status: Current some day smoker Past Alcohol Use History: None Reported Past Drug Use History: Marijuana General Exam Limitations: no limitations General appearance: alert, in no apparent distress Head exam: Present: atraumatic, normocephalic, normal inspection Eye exam: Present: normal appearance, PERRL, EOMI. Absent: scleral icterus, conjunctival injection, periorbital swelling ENT exam: Present: normal exam, mucous membranes moist Neck exam: Present: normal inspection. Absent: tenderness, meningismus, lymphadenopathy Respiratory exam: Present: normal lung sounds bilaterally. Absent: respiratory distress, wheezes, rales, rhonchi, stridor Cardiovascular Exam: Present: regular rate, normal rhythm, normal heart sounds. Absent: systolic murmur, diastolic murmur, rubs, gallop, clicks GI/Abdominal exam: Present: soft, tenderness (Very mild epigastric tenderness), normal bowel sounds. Absent: distended, guarding, rebound, rigid Extremities exam: Present: normal inspection, full ROM, normal capillary refill. Absent: tenderness, pedal edema, joint swelling, calf tenderness Back exam: Present: normal inspection Neurological exam: Present: alert, oriented X3, CN II-XII intact Psychiatric exam: Present: normal affect, normal mood Skin exam: Present: warm, dry, intact, normal color. Absent: rash Course Vital Signs 08/06/19 18:29 Temperature 98.3 F Pulse Rate 83 Respiratory 18 Rate Blood Pressure 148/90 O2 Sat by Pulse 98 Oximetry - Reevaluation(s) Reevaluation #1: 08/06/19 20:13 Medical records reviewed Reevaluation #2: 08/06/19 20:13 Patient's without pain Reevaluation #3: 08/06/19 20:13 Patient informed of results will continue outpatient antacids and follow-up with primary care Medical Decision Making - Medical Decision Making 33 male to the ER for evaluation of abdominal pain. She has persistent current abdominal pain. This all although this is just resolved. Patient has no other complaints symptoms are improving he can be discharged home - Lab Data Result diagrams: 08/06/19 19:40 08/06/19 19:40 Lab Results 08/06/19 08/06/19 08/06/19 Range/Units 19:40 19:40 19:40 WBC 7.6 (3.8-10.6) k/uL RBC 5.23 (4.30-5.90) m/uL Hgb 15.8 (13.0-17.5) gm/dL Hct 47.7 (39.0-53.0) % MCV 91.2 (80.0-100.0) fL MCH 30.2 (25.0-35.0) pg MCHC 33.1 (31.0-37.0) g/dL RDW 12.6 (11.5-15.5) % Plt Count 285 (150-450) k/uL Neutrophils % 73 % Lymphocytes % 15 % Monocytes % 6 % Eosinophils % 4 % Basophils % 0 % Neutrophils # 5.6 (1.3-7.7) k/uL Lymphocytes # 1.1 (1.0-4.8) k/uL Monocytes # 0.5 (0-1.0) k/uL Eosinophils # 0.3 (0-0.7) k/uL Basophils # 0.0 (0-0.2) k/uL Sodium 137 (137-145) mmol/L Potassium 4.4 (3.5-5.1) mmol/L Chloride 103 (98-107) mmol/L Carbon Dioxide 25 (22-30) mmol/L Anion Gap 9 mmol/L BUN 11 (9-20) mg/dL Creatinine 0.89 (0.66-1.25) mg/dL Est GFR (CKD-EPI)AfAm >90 (>60 ml/min/1.73 sqM) Est GFR (CKD-EPI)NonAf >90 (>60 ml/min/1.73 sqM) Glucose 90 (74-99) mg/dL Plasma Lactic Acid Sanchez 0.7 (0.7-2.0) mmol/L Calcium 10.0 (8.4-10.2) mg/dL Total Bilirubin 0.6 (0.2-1.3) mg/dL AST 22 (17-59) U/L ALT 18 (4-49) U/L Alkaline Phosphatase 96 (38-126) U/L Total Protein 8.0 (6.3-8.2) g/dL Albumin 4.5 (3.5-5.0) g/dL Amylase 72 (30-110) U/L Lipase 338 H (23-300) U/L - Radiology Data Radiology results: report reviewed (XR kub negative for acute dsiease), image reviewed Disposition Clinical Impression: Abdominal pain, Pancreatitis Disposition: HOME SELF-CARE Condition: Good Instructions (If sedation given, give patient instructions): Abdominal Pain (ED), Pancreatitis (ED) Is patient prescribed a controlled substance at d/c from ED?: No Referrals: Tripp Crowley DO [Primary Care Provider] - 1-2 days
[2019-08-06 19:56] LABS: Basophils % (A) 0 %; Eosinophils # (A) 0.3 k/uL (0-0.7); Eosinophils % (A) 4 %; HCT 47.7 % (39.0-53.0); HGB 15.8 gm/dL (13.0-17.5); Lymphocytes # (A) 1.1 k/uL (1.0-4.8); Lymphocytes % (A) 15 %; MCH 30.2 pg (25.0-35.0); MCHC 33.1 g/dL (31.0-37.0); MCV 91.2 fL (80.0-100.0); Mean Platelet Volume 7.1; Monocytes # (A) 0.5 k/uL (0-1.0); Monocytes % (A) 6 %; Neutrophils # (A) 5.6 k/uL (1.3-7.7); Neutrophils % (A) 73 %; Platelet Count 285 k/uL (150-450); RBC 5.23 m/uL (4.30-5.90); RDW 12.6 % (11.5-15.5); WBC 7.6 k/uL (3.8-10.6)
[2019-08-06 20:04] LABS: ALT 18 U/L (4-49); AST 22 U/L (17-59); African American GFR (CKD) >90 (>60 ml/min/1.73 sqM); Albumin 4.5 g/dL (3.5-5.0); Alkaline Phosphatase 96 U/L (38-126); Amylase 72 U/L (30-110); Anion Gap 9 mmol/L; Blood Urea Nitrogen 11 mg/dL (9-20); Carbon Dioxide 25 mmol/L (22-30); Chloride 103 mmol/L (98-107); Glucose 90 mg/dL (74-99); Non-African American GFR(CKD) >90 (>60 ml/min/1.73 sqM); Potassium 4.4 mmol/L (3.5-5.1); Sodium 137 mmol/L (137-145); Total Bilirubin 0.6 mg/dL (0.2-1.3)
--- NOTE | 2019-08-06 20:05 | XR ---
EXAMINATION TYPE: XR KUB DATE OF EXAM: 08/06/2019 COMPARISON: 12/31/2014 HISTORY: Abdominal pain TECHNIQUE: 2 views upright bowel gas pattern is normal. There is no sign of intestinal obstruction or pneumoperitoneum. Fecal p attern is normal. There is no evidence of a mass. There are no pathologic calcifications over the kid neys. Lung bases are clear. IMPRESSION: Nonacute abdomen. No change.
[2019-08-06 20:39] VITALS: BP 138/85; RESP 20
== END 2019-08-06 20:41 | disposition home or self-care (01) ==
LOC: EC 18:13
DX: K85.90 Acute pancreatitis without necrosis or infection, unspecified (principal); I12.0 Hypertensive chronic kidney disease with stage 5 chronic kidney disease or end stage renal disease; N18.6 End stage renal disease; F41.9 Anxiety disorder, unspecified; F32.9 Major depressive disorder, single episode, unspecified; F17.200 Nicotine dependence, unspecified, uncomplicated; Z99.2 Dependence on renal dialysis; Z94.0 Kidney transplant status; Z79.899 Other long term (current) drug therapy; Z91.041 Radiographic dye allergy status; Z91.018 Allergy to other foods; Z91.013 Allergy to seafood
CPT/HCPCS: 99284; 96374; 96375 ×2; 96361; 36415; 80053; 82150; 83605; 83690; 85025; 74018; J2270; J2405; C9113

== ENCOUNTER 2021-05-29 00:40 | Emergency (ER) | payer OTHER ==
[2021-05-29 01:00] VITALS: TEMP 98.7
[2021-05-29] MEDS ORDERED: SODIUM CHLORIDE 0.9% 1,000 ML IV STA (03:15)
--- NOTE | 2021-05-29 03:16 | ED ---
Recheck HPI - General Chief Complaint: Recheck/Abnormal Lab/Rx Stated Complaint: HBP Time Seen by Provider: 05/29/21 03:13 Source: patient, RN notes reviewed, old records reviewed Mode of arrival: ambulatory Limitations: no limitations - History of Present Illness Initial Comments: This is a 35-year-old male DF for evaluation of not feeling well. History of kidney transplant and history of blood pressure being elevated daily but does admit it is being improved here in the ER. He states he feels much better now is been the emergency room relapsing for quite some time. Patient has otherwise no change in medications as of recent. No fevers no other complaints. No current abdominal pain he does have pain with surgical site is but that is chronic MD Complaint: other -: hour(s) Returns Today for: other (Overall not feeling well) Symptoms Since Prior Visit: no new symptoms Context: other (Elevated blood pressure) Associated Symptoms: none Treatments Prior to Arrival: other (none) - Related Data Home Medications Medication Instructions Recorded Confirmed Mycophenolate Mofetil [Cellcept] 1,000 mg PO BID 12/31/14 03/06/19 Tacrolimus [Prograf] 1 mg PO HS 12/31/14 03/06/19 Tacrolimus [Prograf] 2 mg PO DAILY 12/31/14 03/06/19 amLODIPine [Norvasc] 10 mg PO DAILY 12/31/14 03/06/19 Acetaminophen Tab [Tylenol] 325 mg PO DAILY 09/03/18 03/06/19 Citalopram Hydrobromide [CeleXA] 5 mg PO DAILY 09/03/18 03/06/19 Enalapril [Vasotec] 10 mg PO HS 09/03/18 03/06/19 Ergocalciferol (Vitamin D2) 50,000 unit PO GAUTHIER 03/06/19 03/06/19 [Drisdol] Previous Rx's Medication Instructions Recorded Amoxic-Pot Clav 875-125Mg 1 each PO Q12HR #20 tablet 03/06/19 [Augmentin Xr 875-125] Enalapril Maleate [Vasotec] 10 mg PO DAILY #30 tab 03/06/19 Fluticasone Nasal [place] [Flonase 2 spr EA NOSTRIL DAILY #1 bottle 03/06/19 Nasal [place]] amLODIPine BESYLATE [Norvasc] 10 mg PO DAILY #30 tablet 03/06/19 Allergies Allergy/AdvReac Type Severity Reaction Status Date / Time Iodinated Contrast Media Allergy Unknown Verified 05/29/21 01:00 [Iodinated Contrast Media - IV Dye] Mushroom Allergy Swelling Verified 05/29/21 01:00 shellfish derived [Shellfish] Allergy Unknown Verified 05/29/21 01:00 Review of Systems ROS Statement: Those systems with pertinent positive or pertinent negative responses have been documented in the HPI. ROS Other: All systems not noted in ROS Statement are negative. Past Medical History Past Medical History: Hypertension, Renal Disease Additional Past Medical History / Comment(s): kidney transplant, dialysis in past History of Any Multi-Drug Resistant Organisms: None Reported Additional Past Surgical History / Comment(s): kidney transplant, peritoneal diaysis cath Past Psychological History: Anxiety, Depression Smoking Status: Never smoker Past Alcohol Use History: None Reported Past Drug Use History: Marijuana General Exam Limitations: no limitations General appearance: alert, in no apparent distress Head exam: Present: atraumatic, normocephalic, normal inspection Eye exam: Present: normal appearance, PERRL, EOMI. Absent: scleral icterus, conjunctival injection, periorbital swelling ENT exam: Present: normal exam, mucous membranes moist Neck exam: Present: normal inspection. Absent: tenderness, meningismus, lymphadenopathy Respiratory exam: Present: normal lung sounds bilaterally. Absent: respiratory distress, wheezes, rales, rhonchi, stridor Cardiovascular Exam: Present: regular rate, normal rhythm, normal heart sounds. Absent: systolic murmur, diastolic murmur, rubs, gallop, clicks GI/Abdominal exam: Present: soft, normal bowel sounds. Absent: distended, ten derness, guarding, rebound, rigid Extremities exam: Present: normal inspection, full ROM, normal capillary refill. Absent: tenderness, pedal edema, joint swelling, calf tenderness Back exam: Present: normal inspection Neurological exam: Present: alert, oriented X3, CN II-XII intact Psychiatric exam: Present: normal affect, normal mood Skin exam: Present: warm, dry, intact, normal color. Absent: rash Course Vital Signs 05/29/21 00:57 Temperature 98.7 F Pulse Rate 85 Respiratory 18 Rate Blood Pressure 169/108 O2 Sat by Pulse 97 Oximetry - Reevaluation(s) Reevaluation #1: 05/29/21 06:26 Medical record is reviewed Reevaluation #2: 05/29/21 06:26 Symptoms are improved Medical Decision Making - Medical Decision Making 35 male to the ER for evaluation of elevated blood pressure. Blood pressures improved here in the ER remains improved is asymptomatic feels good labs are normal can be discharged home - Lab Data Result diagrams: 05/29/21 04:41 05/29/21 04:41 Lab Results 05/29/21 05/29/21 05/29/21 Range/Units 04:41 04:41 04:41 WBC 8.0 (3.8-10.6) k/uL RBC 5.13 (4.30-5.90) m/uL Hgb 16.3 (13.0-17.5) gm/dL Hct 47.7 (39.0-53.0) % MCV 93.0 (80.0-100.0) fL MCH 31.7 (25.0-35.0) pg MCHC 34.1 (31.0-37.0) g/dL RDW 12.8 (11.5-15.5) % Plt Count 281 (150-450) k/uL MPV 7.4 Neutrophils % 66 % Lymphocytes % 23 % Monocytes % 2 % Eosinophils % 6 % Basophils % 1 % Neutrophils # 5.3 (1.3-7.7) k/uL Lymphocytes # 1.9 (1.0-4.8) k/uL Monocytes # 0.1 (0-1.0) k/uL Eosinophils # 0.5 (0-0.7) k/uL Basophils # 0.0 (0-0.2) k/uL Sodium 139 (137-145) mmol/L Potassium 4.1 (3.5-5.1) mmol/L Chloride 105 (98-107) mmol/L Carbon Dioxide 21 L (22-30) mmol/L Anion Gap 13 mmol/L BUN 12 (9-20) mg/dL Creatinine 0.93 (0.66-1.25) mg/dL Est GFR (CKD-EPI)AfAm >90 (>60 ml/min/1.73 sqM) Est GFR (CKD-EPI)NonAf >90 (>60 ml/min/1.73 sqM) Glucose 101 H (74-99) mg/dL Calcium 10.0 (8.4-10.2) mg/dL Phosphorus 3.9 (2.5-4.5) mg/dL Magnesium 2.0 (1.6-2.3) mg/dL Total Bilirubin 0.6 (0.2-1.3) mg/dL AST 34 (17-59) U/L ALT 32 (4-49) U/L Alkaline Phosphatase 81 (38-126) U/L Troponin I <0.012 (0.000-0.034) ng/mL NT-Pro-B Natriuret Pep pg/mL Total Protein 8.6 H (6.3-8.2) g/dL Albumin 4.8 (3.5-5.0) g/dL Urine Color Urine Appearance (Clear) Urine pH (5.0-8.0) Ur Specific [place] (1.001-1.035) Urine Protein (Negative) Urine Glucose (UA) (Negative) Urine Ketones (Negative) Urine Blood (Negative) Urine Nitrite (Negative) Urine Bilirubin (Negative) Urine Urobilinogen (<2.0) mg/dL Ur Leukocyte Esterase (Negative) Urine RBC (0-5) /hpf Urine WBC (0-5) /hpf Urine Mucus (None) /hpf 05/29/21 05/29/21 Range/Units 04:41 04:47 WBC (3.8-10.6) k/uL RBC (4.30-5.90) m/uL Hgb (13.0-17.5) gm/dL Hct (39.0-53.0) % MCV (80.0-100.0) fL MCH (25.0-35.0) pg MCHC (31.0-37.0) g/dL RDW (11.5-15.5) % Plt Count (150-450) k/uL MPV Neutrophils % % Lymphocytes % % Monocytes % % Eosinophils % % Basophils % % Neutrophils # (1.3-7.7) k/uL Lymphocytes # (1.0-4.8) k/uL Monocytes # (0-1.0) k/uL Eosinophils # (0-0.7) k/uL Basophils # (0-0.2) k/uL Sodium (137-145) mmol/L Potassium (3.5-5.1) mmol/L Chloride (98-107) mmol/L Carbon Dioxide (22-30) mmol/L Anion Gap mmol/L BUN (9-20) mg/dL Creatinine (0.66-1.25) mg/dL Est GFR (CKD-EPI)AfAm (>60 ml/min/1.73 sqM) Est GFR (CKD-EPI)NonAf (>60 ml/min/1.73 sqM) Glucose (74-99) mg/dL Calcium (8.4-10.2) mg/dL Phosphorus (2.5-4.5) mg/dL Magnesium (1.6-2.3) mg/dL Total Bilirubin (0.2-1.3) mg/dL AST (17-59) U/L ALT (4-49) U/L Alkaline Phosphatase (38-126) U/L Troponin I (0.000-0.034) ng/mL NT-Pro-B Natriuret Pep <11 pg/mL Total Protein (6.3-8.2) g/dL Albumin (3.5-5.0) g/dL Urine Color Yellow Urine Appearance Clear (Clear) Urine pH 6.5 (5.0-8.0) Ur Specific [place] 1.015 (1.001-1.035) Urine Protein 1+ H (Negative) Urine Glucose (UA) Negative (Negative) Urine Ketones Negative (Negative) Urine Blood Negative (Negative) Urine Nitrite Negative (Negative) Urine Bilirubin Negative (Negative) Urine Urobilinogen <2.0 (<2.0) mg/dL Ur Leukocyte Esterase Negative (Negative) Urine RBC <1 (0-5) /hpf Urine WBC 1 (0-5) /hpf Urine Mucus Rare H (None) /hpf Disposition Clinical Impression: Hypertension Disposition: HOME SELF-CARE Condition: Good Instructions (If sedation given, give patient instructions): Hypertension (ED) Is patient prescribed a controlled substance at d/c from ED?: No Referrals: Tripp Crwoley DO [Primary Care Provider] - 1-2 days
[2021-05-29 05:00] LABS: Basophils % (A) 1 %; Eosinophils # (A) 0.5 k/uL (0-0.7); Eosinophils % (A) 6 %; HCT 47.7 % (39.0-53.0); HGB 16.3 gm/dL (13.0-17.5); Lymphocytes # (A) 1.9 k/uL (1.0-4.8); Lymphocytes % (A) 23 %; MCH 31.7 pg (25.0-35.0); MCHC 34.1 g/dL (31.0-37.0); Mean Platelet Volume 7.4; Monocytes # (A) 0.1 k/uL (0-1.0); Monocytes % (A) 2 %; Neutrophils # (A) 5.3 k/uL (1.3-7.7); Neutrophils % (A) 66 %; Platelet Count 281 k/uL (150-450); RBC 5.13 m/uL (4.30-5.90); RDW 12.8 % (11.5-15.5)
[2021-05-29 05:08] LABS: Appearance,Urine Clear (Clear); Bilirubin,Urine Negative (Negative); Blood,Urine Negative (Negative); Color,Urine Yellow; Glucose,Urine (UA) Negative (Negative); Ketones,Urine Negative (Negative); Leukocyte Esterase,Urine Negative (Negative); Mucus,Urine Rare /hpf; Nitrite,Urine Negative (Negative); PH, Urine 6.5 (5.0-8.0); Protein,Urine 1+ (Negative); RBC,Urine <1 /hpf (0-5); Specific Gravity,Urine 1.015 (1.001-1.035); Urobilinogen,Urine <2.0 mg/dL (<2.0); WBC,Urine 1 /hpf (0-5)
[2021-05-29 05:25] LABS: ALT 32 U/L (4-49); AST 34 U/L (17-59); African American GFR (CKD) >90 (>60 ml/min/1.73 sqM); Albumin 4.8 g/dL (3.5-5.0); Alkaline Phosphatase 81 U/L (38-126); Anion Gap 13 mmol/L; Blood Urea Nitrogen 12 mg/dL (9-20); Carbon Dioxide 21 mmol/L (22-30); Chloride 105 mmol/L (98-107); Glucose 101 mg/dL (74-99); Non-African American GFR(CKD) >90 (>60 ml/min/1.73 sqM); Phosphorus 3.9 mg/dL (2.5-4.5); Potassium 4.1 mmol/L (3.5-5.1); Sodium 139 mmol/L (137-145); Total Bilirubin 0.6 mg/dL (0.2-1.3); Total Protein 8.6 g/dL (6.3-8.2)
[2021-05-29 07:04] VITALS: BP 133/86; PULSE 72; RESP 17
== END 2021-05-29 07:03 | disposition home or self-care (01) ==
LOC: EC 00:40
DX: I10 Essential (primary) hypertension (principal); F32.A Depression, unspecified; F41.9 Anxiety disorder, unspecified; Z79.899 Other long term (current) drug therapy
CPT/HCPCS: 36415; 80053; 81001; 83735; 83880; 84100; 84484; 85025; 99283

== ENCOUNTER → 2023-01-20 | Outpatient (CLI) | payer OTHER ==
[2023-01-20 15:43] LABS: Basophils # (A) 0.04 X 10*3/uL (0.00-0.10); Basophils % (A) 0.9 %; Eosinophils % (A) 2.2 %; HCT 46.7 % (39.6-50.0); HGB 15.6 d/dL (13.0-17.0); Lymphocytes # (A) 1.24 X 10*3/uL (0.90-5.00); Lymphocytes % (A) 26.7 %; MCH 30.6 pg (27.0-32.0); MCHC 33.4 d/dL (32.0-37.0); MCV 91.6 FL (80.0-97.0); Mean Platelet Volume 10.3 FL (9.5-12.2); Monocytes # (A) 0.74 X 10*3/uL (0.20-1.00); Monocytes % (A) 15.9 %; NRBC Per 100 WBC 0 X 10*3/uL (0.00-0.01); Neutrophils # (A) 2.51 X 10*3/uL (1.80-7.70); Neutrophils % (A) 54.1 %; Platelet Count 265 X 10*3/uL (140-440); RDW 12.9 % (11.5-14.5); WBC 4.64 X 10*3/uL (4.50-10.00)
[2023-01-20 16:47] LABS: % Iron Saturation 25.39 (15.00-50.00); Albumin 4.9 d/dL (3.8-4.9); BUN/Creat Ratio 11.45 Ratio (12.00-20.00); Blood Urea Nitrogen 12.6 mg/dL (9.0-27.0); Carbon Dioxide 24.5 mmol/L (21.6-31.8); Chloride 105 mmol/L (96-109); Glucose 101 mg/dL (70-110); Iron 81 UG/DL (65-175); Magnesium 1.8 mg/dL (1.5-2.4); Phosphorus 2.2 mg/dL (2.4-5.1); Potassium 4.7 mmol/L (3.5-5.5); Sodium 142 mmol/L (135-145); Total Iron Binding Capacity 319 UG/DL (228-460); Uric Acid 8.9 mg/dL (3.7-8.7)
[2023-01-20 17:34] LABS: Appearance,Urine Clear (Clear); Bilirubin,Urine Negative (Negative); Blood,Urine Negative (Negative); Color,Urine Yellow (Yellow); Ketones,Urine Negative (Negative); Nitrite,Urine Negative (Negative); Specific Gravity,Urine 1.008 (1.001-1.030); Urobilinogen,Urine 0.2 E.U./DL
[2023-01-20 18:06] LABS: Urine Creatinine 66.4 mg/dL (39.0-259.0)
== END | disposition home or self-care (01) ==
LOC: LABWHC1 09:38
PROVIDERS: ATTEND Internal Medicine Nephrology
DX: E55.9 Vitamin D deficiency, unspecified (principal); M10.9 Gout, unspecified; N25.81 Secondary hyperparathyroidism of renal origin; D64.81 Anemia due to antineoplastic chemotherapy; Z94.0 Kidney transplant status
CPT/HCPCS: 36415; 80048; 80197; 81003; 82040; 82043; 82306; 82570; 82728; 83540; 83550; 83735; 83970; 84100; 84550; 85025

== ENCOUNTER 2023-07-19 15:03 | Emergency (ER) | payer OTHER ==
--- NOTE | 2023-07-19 15:38 | ED ---
URI HPI - General Source: patient, RN notes reviewed Mode of arrival: ambulatory Limitations: no limitations <Koko Borden - Last Filed: 07/19/23 15:37> - General Source: RN notes reviewed, old records reviewed Mode of arrival: ambulatory Limitations: no limitations - History of Present Illness MD Complaint: fever, cough, sore throat, nasal congestion, sinus pain -: week(s) Severity: moderate Severity scale (1-10): 4 Consistency: intermittent Improves With: nothing Worsens With: nothing Context: sick contacts Associated Symptoms: chills, myalgias, headache, rhinorrhea, nasal congestion Treatments Prior to Arrival: none <Pk Esteves - Last Filed: 07/31/23 14:21> - General Chief Complaint: Upper Respiratory Infection Stated Complaint: KATHY Time Seen by Provider: 07/19/23 15:19 - History of Present Illness Initial Comments: [id number]-year-old male presents emergency department complaint of cough and congestion. Patient states that he has been sick for several weeks he was seen in urgent care was placed on albuterol, doxycycline steroids. Patient states he continues to have cough seem to worsen recently. States he is concerned as he has had prior kidney transplant. (Koko Borden) This is a 37-year-old male to the ER for cough and congestion and runny nose with recent treatment of antibiotics and steroids. Patient's symptoms got better but now concerningly worse. (Pk Esteves) - Related Data Home Medications Medication Instructions Recorded Confirmed Tacrolimus [Prograf] 1 mg PO HS 12/31/14 03/06/19 Tacrolimus [Prograf] 2 mg PO DAILY 12/31/14 03/06/19 amLODIPine [Norvasc] 10 mg PO DAILY 12/31/14 03/06/19 mycophenolate mofetiL [Cellcept] 1,000 mg PO BID 12/31/14 03/06/19 Acetaminophen Tab [Tylenol] 325 mg PO DAILY 09/03/18 03/06/19 Citalopram Hydrobromide [CeleXA] 5 mg PO DAILY 09/03/18 03/06/19 Enalapril [Vasotec] 10 mg PO HS 09/03/18 03/06/19 Ergocalciferol (Vitamin D2) 50,000 unit PO GAUTHIER 03/06/19 03/06/19 [Drisdol] Previous Rx's Medication Instructions Recorded Amoxic-Pot Clav 875-125Mg 1 each PO Q12HR #20 tablet 03/06/19 [Augmentin Xr 875-125] Enalapril Maleate [Vasotec] 10 mg PO DAILY #30 tab 03/06/19 Fluticasone Nasal [place] [Flonase 2 spr EA NOSTRIL DAILY #1 bottle 03/06/19 Nasal [place]] amLODIPine BESYLATE [Norvasc] 10 mg PO DAILY #30 tablet 03/06/19 Allergies Allergy/AdvReac Type Severity Reaction Status Date / Time Iodinated Contrast Media Allergy Unknown Verified 05/29/21 01:00 [Iodinated Contrast Media - IV Dye] Mushroom Allergy Swelling Verified 05/29/21 01:00 shellfish derived [Shellfish] Allergy Unknown Verified 05/29/21 01:00 Review of Systems ROS Other: All systems not noted in ROS Statement are negative. <Koko Borden - Last Filed: 07/19/23 15:37> ROS Other: All systems not noted in ROS Statement are negative. <Pk Esteves - Last Filed: 07/31/23 14:21> ROS Statement: Those systems with pertinent positive or pertinent negative responses have been documented in the HPI. Past Medical History Past Medical History: Hypertension, Renal Disease Additional Past Medical History / Comment(s): kidney transplant, dialysis in past History of Any Multi-Drug Resistant Organisms: None Reported Additional Past Surgical History / Comment(s): kidney transplant, peritoneal diaysis cath Past Psychological History: Anxiety, Depression Smoking Status: Never smoker Past Alcohol Use History: None Reported Past Drug Use History: Marijuana <Koko Borden - Last Filed: 07/19/23 15:37> General Exam Limitations: no limitations General appearance: alert, in no apparent distress Head exam: Present: atraumatic, normocephalic, normal inspection Eye exam: Present: normal appearance, PERRL, EOMI. Absent: scleral icterus, conjunctival injection, periorbital swelling ENT exam: Present: normal exam, mucous membranes moist Neck exam: Present: normal inspection, full ROM. Absent: tenderness, meningismus, lymphadenopathy Respiratory exam: Present: wheezes, rhonchi. Absent: normal lung sounds bilaterally, respiratory distress, rales, stridor Cardiovascular Exam: Present: regular rate, normal rhythm, normal heart sounds. Absent: systolic murmur, diastolic murmur, rubs, gallop, clicks GI/Abdominal exam: Present: soft, normal bowel sounds. Absent: distended, tenderness, guarding, rebound, rigid <JeweldaraKoko Amelia - Last Filed: 07/19/23 15:37> General appearance: alert, in no apparent distress Head exam: Present: atraumatic, normocephalic, normal inspection Eye exam: Present: normal appearance, PERRL, EOMI. Absent: scleral icterus, conjunctival injection, periorbital swelling ENT exam: Present: normal exam, mucous membranes moist Neck exam: Present: normal inspection. Absent: tenderness, meningismus, lymphadenopathy Respiratory exam: Present: normal lung sounds bilaterally. Absent: respiratory distress, wheezes, rales, rhonchi, stridor Cardiovascular Exam: Present: regular rate, normal rhythm, normal heart sounds. Absent: systolic murmur, diastolic murmur, rubs, gallop, clicks GI/Abdominal exam: Present: soft, normal bowel sounds. Absent: distended, tenderness, guarding, rebound, rigid Extremities exam: Present: normal inspection, full ROM, normal capillary refill. Absent: tenderness, pedal edema, joint swelling, calf tenderness Back exam: Present: normal inspection Neurological exam: Present: alert, oriented X3, CN II-XII intact Psychiatric exam: Present: normal affect, normal mood Skin exam: Present: warm, dry, intact, normal color. Absent: rash <Pk Esteves - Last Filed: 07/31/23 14:21> Course <Pk Esteves - Last Filed: 07/31/23 14:21> Vital Signs 07/19/23 07/19/23 15:17 18:58 Temperature 99 F 98.4 F Pulse Rate 100 73 Respiratory 20 18 Rate Blood Pressure 138/86 156/100 O2 Sat by Pulse 98 98 Oximetry - Reevaluation(s) Reevaluation #1: Medical records reviewed (Pk Esteves) Reevaluation #2: Patient symptoms improved (Pk Esteves) Reevaluation #3: Patient informed of results and questions answered (Pk Esteves) Reevaluation #4: Was pt. sent in by a medical professional or institution (, [facility], WATCH MECHANIC, urgent care, hospital, or senior living...) When possible be specific @ -no Did you speak to anyone other than the patient for history (EMS, parent, family, police, friend...)? What history was obtained from this source @ -no Did you review nursing and triage notes (agree or disagree)? Why? @ -agree Are old charts reviewed (outside hosp., previous admission, EMS record, old EKG, old radiological studies, urgent care reports/EKG's, senior living records)? Report findings @ -yes Differential Diagnosis (chest pain, altered mental status, abdominal pain women, abdominal pain men, vaginal bleeding, weakness, fever, dyspnea, syncope, headache, dizziness, GI bleed, back pain, seizure, CVA, palpatations, mental health, musculoskeletal)? @ -prior EKG interpreted by me (3pts min.). @ -no X-rays interpreted by me (1pt min.). @ -yes negative for acute disease CT interpreted by me (1pt min.). @ -no U/S interpreted by me (1pt. min.). @ -no What testing was considered but not performed or refused? (CT, X-rays, U/S, labs)? Why? @ -none What meds were considered but not given or refused? Why? @ -none Did you discuss the management of the patient with other professionals (professionals i.e. [facility] Bishop, WATCH MECHANIC, lab, RT, psych nurse, rn social services, merchant patroller, teacher, property disposal officer, spring encaser)? Give summary @ -no Was smoking cessation discussed for >3mins.? @ -no Was critical care preformed (if so, how long)? @ -no Were there social determinants of health that impacted care today? How? (Homelessness, low income, unemployed, alcoholism, drug addiction, transportation, low edu. Level, literacy, decrease access to med. care, correction, rehab)? @ -none Was there de-escalation of care discussed even if they declined (Discuss DNR or withdrawal of care, Hospice)? DNR status @ -no What co-morbidities impacted this encounter? (DM, HTN, Smoking, COPD, CAD, Cancer, CVA, ARF, Chemo, Hep., AIDS, mental health diagnosis, sleep apnea, morbid obesity)? @ -none Was patient admitted / discharged? Hospital course, mention meds given and route, prescriptions, significant lab abnormalities, going to OR and other pertinent info. @ - 37 male with signs and symptoms of upper respiratory infection. Normal imaging and viral testing here in the ER, patient has improved symptoms here in the ER and is in no acute distress. No cardiac risk factors no significant current chest pain and can be discharged home Discharge Undiagnosed new problem with uncertain prognosis? @ -no Drug Therapy requiring intensive monitoring for toxicity (Heparin, Nitro, Insulin, Cardizem)? @ -no Were any procedures done? @ -no Diagnosis/symptom? @ -Chest pain, pressure infection Acute, or Chronic, or Acute on Chronic? @ -Acute Uncomplicated (without systemic symptoms) or Complicated (systemic symptoms)? @ -Complicated Side effects of treatment? @ -no Exacerbation, Progression, or Severe Exacerbation? @ -exacerbation Poses a threat to life or bodily function? How? (Chest pain, [place], [place], pneumonia, PE, COPD, DKA, ARF, appy, cholecystitis, CVA, Diverticulitis, Homicidal, Suicidal, threat to staff... and all critical care pts) @ -no (Pk Esteves) Reevaluation #5: Differential Dyspnea: Coronary syndrome, arrhythmia, tamponade, asthma, COPD, pulmonary embolism, pneumonia, pneumothorax, pulmonary effusion, anaphylaxis, diabetic ketoacidosis, flailed chest, pulmonary contusion, diaphragmatic rupture, anemia, neurom uscular, this is not meant to be an all-inclusive list. (Pk Esteves) Medical Decision Making - Radiology Data Radiology results: report reviewed (Chest x-ray is negative for acute disease), image reviewed <Pk Esteves - Last Filed: 07/31/23 14:21> - Medical Decision Making 37 male with signs and symptoms of upper respiratory infection. Normal imaging and viral testing here in the ER, patient has improved symptoms here in the ER and is in no acute distress. No cardiac risk factors no significant current chest pain and can be discharged home (Pk Esteves) - Lab Data Lab Results 07/19/23 Range/Units 15:22 Influenza Type A (PCR) Not Detected (Not Detectd) Influenza Type B (PCR) Not Detected (Not Detectd) RSV (PCR) Not Detected (Not Detectd) SARS-CoV-2 (PCR) Not Detected (Not Detectd) Disposition <Koko Borden M - Last Filed: 07/19/23 15:37> Is patient prescribed a controlled substance at d/c from ED?: No Time of Disposition: 18:00 <Pk Esteves - Last Filed: 07/31/23 14:21> Clinical Impression: Upper respiratory tract infection, Acute upper respiratory infection, Viral infection Disposition: HOME SELF-CARE Condition: Good Instructions (If sedation given, give patient instructions): Upper Respiratory Infection (ED), Viral Syndrome (ED) Referrals: Tripp Crowley DO [Primary Care Provider] - 1-2 days
--- NOTE | 2023-07-19 17:05 | XR ---
EXAMINATION TYPE: XR chest 2V DATE OF EXAM: 07/19/2023 COMPARISON: 03/27/2011 HISTORY: 37-year-old male with fever and cough TECHNIQUE: PA and lateral views FINDINGS: The cardiomediastinal silhouette, aorta, and pulmonary vasculature are within normal limits. Lungs an d pleural spaces are clear. IMPRESSION: No acute cardiopulmonary process.
[2023-07-19 19:27] VITALS: BP 156/100; PULSE 73; RESP 18; TEMP 98.4
== END 2023-07-19 19:05 | disposition home or self-care (01) ==
LOC: EC 15:03
DX: J06.9 Acute upper respiratory infection, unspecified (principal); I10 Essential (primary) hypertension; F32.A Depression, unspecified; F41.9 Anxiety disorder, unspecified; F12.90 Cannabis use, unspecified, uncomplicated; Z79.899 Other long term (current) drug therapy; Z91.041 Radiographic dye allergy status; Z91.013 Allergy to seafood; Z91.018 Allergy to other foods; Z99.2 Dependence on renal dialysis; Z20.822 Contact with and (suspected) exposure to COVID-19
CPT/HCPCS: 71046; 87636; 99285

== ENCOUNTER 2023-09-13 18:36 | Emergency (ER) | payer OTHER ==
[2023-09-13 18:52] VITALS: RESP 18
--- NOTE | 2023-09-13 19:08 | ED ---
ENT HPI - General Chief complaint: ENT Stated complaint: R ear pain Time Seen by Provider: 09/13/23 18:50 Source: patient, RN notes reviewed Mode of arrival: ambulatory Limitations: no limitations - History of Present Illness Initial comments: This is a 37-year-old male with history of renal transplant on immunosuppressants presents to the ED with chief complaint of right ear fullness and associated tinnitus over the last few weeks. Patient states that he was treated for a sinus infection with clindamycin about 2 months ago. Additionally, patient has been having a ongoing cough that is occasionally productive. he denies fevers, nausea, vomiting, diarrhea, shortness of breath, chest pressure or pain. - Related Data Home Medications Medication Instructions Recorded Confirmed Tacrolimus [Prograf] 1 mg PO HS 12/31/14 03/06/19 Tacrolimus [Prograf] 2 mg PO DAILY 12/31/14 03/06/19 amLODIPine [Norvasc] 10 mg PO DAILY 12/31/14 03/06/19 mycophenolate mofetiL [Cellcept] 1,000 mg PO BID 12/31/14 03/06/19 Acetaminophen Tab [Tylenol] 325 mg PO DAILY 09/03/18 03/06/19 Citalopram Hydrobromide [CeleXA] 5 mg PO DAILY 09/03/18 03/06/19 Enalapril [Vasotec] 10 mg PO HS 09/03/18 03/06/19 Ergocalciferol (Vitamin D2) 50,000 unit PO GAUTHIER 03/06/19 03/06/19 [Drisdol] Previous Rx's Medication Instructions Recorded Amoxic-Pot Clav 875-125Mg 1 each PO Q12HR #20 tablet 03/06/19 [Augmentin Xr 875-125] Enalapril Maleate [Vasotec] 10 mg PO DAILY #30 tab 03/06/19 Fluticasone Nasal Reubens [Flonase 2 spr EA NOSTRIL DAILY #1 bottle 03/06/19 Nasal Reubens] amLODIPine BESYLATE [Norvasc] 10 mg PO DAILY #30 tablet 03/06/19 Benzonatate [Tessalon Perles] 100 mg PO TID PRN #15 capsule 09/13/23 Fluticasone Nasal Reubens [Flonase 2 spr EA NOSTRIL DAILY #16 gm 09/13/23 Nasal Reubens] Allergies Allergy/AdvReac Type Severity Reaction Status Date / Time Iodinated Contrast Media Allergy Unknown Verified 09/13/23 18:41 [Iodinated Contrast Media - IV Dye] Mushroom Allergy Swelling Verified 09/13/23 18:41 shellfish derived [Shellfish] Allergy Unknown Verified 09/13/23 18:41 Review of Systems ROS Statement: Those systems with pertinent positive or pertinent negative responses have been documented in the HPI. ROS Other: All systems not noted in ROS Statement are negative. Past Medical History Past Medical History: Hypertension, Renal Disease Additional Past Medical History / Comment(s): kidney transplant, dialysis in past History of Any Multi-Drug Resistant Organisms: None Reported Additional Past Surgical History / Comment(s): kidney transplant, peritoneal diaysis cath Past Psychological History: Anxiety, Depression Smoking Status: Never smoker Past Alcohol Use History: None Reported Past Drug Use History: Marijuana General Exam Limitations: no limitations General appearance: alert, in no apparent distress Head exam: Present: atraumatic, normocephalic, normal inspection Eye exam: Present: normal appearance, PERRL, EOMI. Absent: scleral icterus, conjunctival injection, periorbital swelling ENT exam: Present: normal exam, mucous membranes moist Neck exam: Present: normal inspection. Absent: tenderness, meningismus, lymphadenopathy Respiratory exam: Present: normal lung sounds bilaterally. Absent: respiratory distress, wheezes, rales, rhonchi, stridor Cardiovascular Exam: Present: regular rate, normal rhythm, normal heart sounds. Absent: systolic murmur, diastolic murmur, rubs, gallop, clicks GI/Abdominal exam: Present: soft, normal bowel sounds. Absent: distended, tenderness, guarding, rebound, rigid Extremities exam: Present: normal inspection, full ROM, normal capillary refill. Absent: tenderness, pedal edema, joint swelling, calf tenderness Back exam: Present: normal inspection Neurological exam: Present: alert, oriented X3, CN II-XII intact Psychiatric exam: Present: normal affect, normal mood Skin exam: Present: warm, dry, intact, normal color. Absent: rash Course Vital Signs 09/13/23 18:37 Temperature 98.0 F Pulse Rate 81 Respiratory 18 Rate Blood Pressure 157/112 O2 Sat by Pulse 96 Oximetry Medical Decision Making - Medical Decision Making Was pt. sent in by a medical professional or institution (, PA, COLLEGE COACH, urgent care, hospital, or [place] [facility]...) When possible be specific @ -No Did you speak to anyone other than the patient for history (EMS, parent, family, police, friend...)? What history was obtained from this source @ -No Did you review nursing and triage notes (agree or disagree)? Why? @ -I reviewed and agree with nursing and triage notes Were old charts reviewed (outside hosp., previous admission, EMS record, old EKG, old radiological studies, urgent care reports/EKG's, [place] [facility] records)? Report findings @ -No old charts were reviewed Differential Diagnosis (chest pain, altered mental status, abdominal pain women, abdominal pain men, vaginal bleeding, weakness, fever, dyspnea, syncope, headache, dizziness, GI bleed, back pain, seizure, CVA, palpatations, mental health, musculoskeletal)? @ -COVID 19, RSV, influenza, pneumonia, acute bronchitis, URI, this list is not all inclusive EKG interpreted by me (3pts min.). @ -None X-rays interpreted by me (1pt min.). @ -No acute cardiopulmonary process noted CT interpreted by me (1pt min.). @ -None done U/S interpreted by me (1pt. min.). @ -None done What testing was considered but not performed or refused? (CT, X-rays, U/S, labs)? Why? @ -None What meds were considered but not given or refused? Why? @ -None Did you discuss the management of the patient with other professionals (professionals i.e. , PA, COLLEGE COACH, lab, RT, psych nurse, social work associate, gericare aide teacher, teacher, chief privacy officer, field case manager)? Give summary @ -No Was smoking cessation discussed for >3mins.? @ -No Was critical care preformed (if so, how long)? @ -No Were there social determinants of health that impacted care today? How? (Homelessness, low income, unemployed, alcoholism, drug addiction, transportation, low edu. Level, literacy, decrease access to med. care, [place] [facility], rehab)? @ -No Was there de-escalation of care discussed even if they declined (Discuss DNR or withdrawal of care, Hospice)? DNR status @ -No What co-morbidities impacted this encounter? (DM, HTN, Smoking, COPD, CAD, Cancer, CVA, ARF, Chemo, Hep., AIDS, mental health diagnosis, sleep apnea, morbid obesity)? @ -Immunosuppressed due to kidney transplant, HTN Was patient admitted / discharged? Hospital course, mention meds given and route, prescriptions, significant lab abnormalities, going to OR and other pertinent info. @ -37 year old male with ear pressure, fullness, and slight cough. On physical examination there are no acute deficits of the right TM and or canal. Due to patient's symptoms of cough over the last 2 weeks, chest x-ray was ordered with no acute findings. Discussed with patient symptoms are likely secondary to viral infection with ongoing symptoms. Patient prescribed Flonase to aid in decreasing fluid behind the ears and benzonatate for cough suppression. Discussed this case with Dr. Esteves. Patient has follow-up appointment with chute tapper next week due to elevated blood pressures over the past few months. On recheck, patient's blood pressure was 140s over 90s, patient states that he has not taken his evening dose of antihypertensive medication. Patient is ACS symptom free, stable for discharge home. Undiagnosed new problem with uncertain prognosis? @ -No Drug Therapy requiring intensive monitoring for toxicity (Heparin, Nitro, In sulin, Cardizem)? @ -No Were any procedures done? @ -No Diagnosis/symptom? @ -viral symptoms, ear fullness, dry cough Acute, or Chronic, or Acute on Chronic? @ -acute Uncomplicated (without systemic symptoms) or Complicated (systemic symptoms)? @ -uncomplicated Side effects of treatment? @ -No Exacerbation, Progression, or Severe Exacerbation? @ -No Poses a threat to life or bodily function? How? (Chest pain, [place], [place], pneumonia, PE, COPD, DKA, ARF, appy, cholecystitis, CVA, Diverticulitis, Homicidal, Suicidal, threat to staff... and all critical care pts) @ -No Disposition Clinical Impression: Viral URI with cough, Pressure sensation in ear Narrative: Please return to the Emergency Department if symptoms worsen or any other concerns. Disposition: HOME SELF-CARE Condition: Good Instructions (If sedation given, give patient instructions): Sinusitis (ED) Prescriptions: Fluticasone Nasal Reubens [Flonase Nasal Reubens] 2 spr EA NOSTRIL DAILY #16 gm Benzonatate [Tessalon Perles] 100 mg PO TID PRN #15 capsule PRN Reason: Cough Is patient prescribed a controlled substance at d/c from ED?: No Referrals: Tripp Crowley DO [Primary Care Provider] - 1-2 days Time of Disposition: 21:59
--- NOTE | 2023-09-13 22:03 | XR ---
EXAMINATION TYPE: XR chest 2V DATE OF EXAM: 09/13/2023 7:54 PM CLINICAL INDICATION:Male, 37 years old with history of cough; [facility] COMPARISON: 07/19/2023 TECHNIQUE: XR chest 2V. Frontal and lateral views of the chest.. FINDINGS: Lines/Tubes/Devices: No indwelling lines are seen. Heart/mediastinum: Heart size is normal. Mediastinum appears normal. Pulmonary vascularity: Not increased, Lungs/Pleura: There is no evidence of pleural effusion, focal consolidation, or pneumothorax. Musculoskeletal: No acute osseous abnormality demonstrated in the limits of the exam. Other findings: None. IMPRESSION: No acute findings, or significant interval change.
[2023-09-13 22:24] VITALS: BP 143/82; PULSE 74; TEMP 97.9
== END 2023-09-13 22:15 | disposition home or self-care (01) ==
LOC: EC 18:36
DX: J06.9 Acute upper respiratory infection, unspecified (principal); H93.11 Tinnitus, right ear; I10 Essential (primary) hypertension; Z91.041 Radiographic dye allergy status; Z88.8 Allergy status to other drugs, medicaments and biological substances; Z91.013 Allergy to seafood
CPT/HCPCS: 71046; 99283

== ENCOUNTER → 2024-02-09 | Outpatient (CLI) | payer OTHER | END | disposition home or self-care (01) | LOC: LABWHC1 09:09 | PROVIDERS: ATTEND Nurse Practitioner Family | DX: Z94.0 Kidney transplant status | CPT/HCPCS: 36415; 80197 ==

== ENCOUNTER → 2024-05-24 | Outpatient (CLI) | payer OTHER ==
--- NOTE | 2024-05-24 13:03 | US ---
EXAMINATION TYPE: US kidneys/renal and bladder DATE OF EXAM: 05/24/2024 COMPARISON: CT(11/12/2017) CLINICAL INDICATION: Male, 38 years old with history of Z94.0 TRANSPLANTED KIDNEY; TECHNIQUE: Grayscale imaging of the bilateral kidneys and urinary bladder: FINDINGS: EXAM MEASUREMENTS: Right Kidney: 6.9x3.5x3.2 cm Left Kidney: 6.7x3.6x3.1 cm Right Kidney: Atrophic [place] kidney Left Kidney: Atrophic [place] kidney [place] KIDNEY: (LLQ) 13.0x5.4x6.3cm Bladder: wnl Bilateral Jets seen: No There is no evidence of hydronephrosis, nephrolithiasis or perinephric fluid collection within the tr ansplant. Good vascular flow identified. IMPRESSION: Bilateral atrophic [place] kidneys with renal transplant. There is no evidence of hydronephrosis, neph rolithiasis or perinephric fluid collection within the transplant. Good vascular flow identified. [facility], , 05/24/2024 1:01 PM
== END | disposition home or self-care (01) ==
LOC: RADUSWWP 12:13
PROVIDERS: ATTEND Internal Medicine Nephrology
DX: N26.1 Atrophy of kidney (terminal) (principal); Z94.0 Kidney transplant status
CPT/HCPCS: 76770

== ENCOUNTER 2024-11-22 14:24 | Emergency (ER) | payer OTHER ==
--- NOTE | 2024-11-22 14:48 | ED ---
General Adult HPI - General Chief complaint: Nausea/Vomiting/Diarrhea Stated complaint: Dizziness/Nausea/Fatigue Time Seen by Provider: 11/22/24 14:31 Source: patient, RN notes reviewed Mode of arrival: ambulatory Limitations: no limitations - History of Present Illness Initial comments: Patient is a 38-year-old male present to the emergency department with concerns were nausea. Patient did go to urgent care however was referred here secondary to his blood pressure being 150/90. Patient does have history of kidney transplant. Patient is on antihypertensive and has been taking them as normal. No vomiting. Patient has had some lightheadedness. Patient has had some decreased oral intake recently. - Related Data Home Medications Medication Instructions Recorded Confirmed Tacrolimus [Prograf] 1 mg PO BID 12/31/14 11/22/24 mycophenolate mofetiL [Cellcept] 1,000 mg PO BID 12/31/14 11/22/24 Acetaminophen Tab [Tylenol] 650 mg PO Q6H PRN 09/03/18 11/22/24 Escitalopram [Lexapro] 10 mg PO DAILY 11/22/24 11/22/24 carvediloL [Coreg] 25 mg PO BID 11/22/24 11/22/24 Previous Rx's Medication Instructions Recorded Ondansetron Odt [Zofran Odt] 4 mg PO Q8HR PRN #10 tab 11/22/24 Allergies Allergy/AdvReac Type Severity Reaction Status Date / Time Iodinated Contrast Media Allergy Anaphylaxis Verified 11/22/24 15:15 [Iodinated Contrast Media - IV Dye] Mushroom Allergy Anaphylaxis Verified 11/22/24 15:15 shellfish derived [Shellfish] Allergy Anaphylaxis Verified 11/22/24 15:15 Review of Systems ROS Statement: Those systems with pertinent positive or pertinent negative responses have been documented in the HPI. ROS Other: All systems not noted in ROS Statement are negative. Constitutional: Denies: fever Eyes: Denies: eye pain ENT: Denies: ear pain Respiratory: Denies: dyspnea Cardiovascular: Denies: chest pain Gastrointestinal: Reports: nausea. Denies: abdominal pain, vomiting Past Medical History Past Medical History: Hypertension, Renal Disease Additional Past Medical History / Comment(s): kidney transplant, dialysis in past History of Any Multi-Drug Resistant Organisms: None Reported Additional Past Surgical History / Comment(s): kidney transplant, peritoneal diaysis cath Past Psychological History: Anxiety, Depression Smoking Status: Never smoker Past Alcohol Use History: None Reported Past Drug Use History: Marijuana General Exam Limitations: no limitations General appearance: alert, in no apparent distress Head exam: Present: normocephalic Eye exam: Present: normal appearance Neck exam: Present: normal inspection Respiratory exam: Present: normal lung sounds bilaterally Cardiovascular Exam: Present: regular rate, normal rhythm GI/Abdominal exam: Present: soft. Absent: tenderness Extremities exam: Present: normal inspection Neurological exam: Present: alert. Absent: motor sensory deficit Psychiatric exam: Present: normal affect, normal mood Skin exam: Present: normal color Course Vital Signs 11/22/24 11/22/24 11/22/24 14:26 14:41 15:15 Temperature 98.2 F Pulse Rate 102 H 95 85 Respiratory 18 16 15 Rate Blood Pressure 142/91 142/96 138/88 O2 Sat by Pulse 95 96 96 Oximetry EKG Findings - EKG Results: EKG: interpreted by ERMD, sinus rhythm, normal axis, normal QRS, normal ST/T Medical Decision Making - Medical Decision Making Was pt. sent in by a medical professional or institution (Dr. PA, FLOOR FINISHER HELPER, urgent care, hospital, or halfway...) When possible be specific @ -Patient was sent from urgent care Did you speak to anyone other than the patient for history (EMS, parent, family, police, friend...)? What history was obtained from this source @ -No Did you review nursing and triage notes (agree or disagree)? Why? @ -I reviewed and agree with nursing and triage notes Were old charts reviewed (outside hosp., previous admission, EMS record, old EKG, old radiological studies, urgent care reports/EKG's, halfway records)? Report findings @ -No old charts were reviewed Differential Diagnosis (chest pain, altered mental status, abdominal pain women, abdominal pain men, vaginal bleeding, weakness, fever, dyspnea, syncope, headache, dizziness, GI bleed, back pain, seizure, CVA, palpatations, mental health, musculoskeletal)? @ -Differential Dizziness: Benign paroxysmal positional Vertigo, Meniere's disease, otitis media, acoustic neuroma, vertebrobasilar insufficiency, cerebellar stroke, encephalitis, hypovolemic, arrhythmia, coronary artery syndrome, anemia, this is not meant to be an all-inclusive list EKG interpreted by me (3pts min.). @ -As above X-rays interpreted by me (1pt min.). @ -None done CT interpreted by me (1pt min.). @ -None done U/S interpreted by me (1pt. min.). @ -None done What testing was considered but not performed or refused? (CT, X-rays, U/S, labs)? Why? @ -None What meds were considered but not given or refused? Why? @ -None Did you discuss the management of the patient with other professionals (professionals i.e. , PA, FLOOR FINISHER HELPER, lab, RT, psych nurse, older adult social work specialist, pararescue manager, teacher, contracts officer, shoe parts caser)? Give summary @ -No Was smoking cessation discussed for >3mins.? @ -No Was critical care preformed (if so, how long)? @ -No Were there social determinants of health that impacted care today? How? (Homelessness, low income, unemployed, alcoholism, drug addiction, transportation, low edu. Level, literacy, decrease access to med. care, [facility], rehab)? @ -No Was there de-escalation of care discussed even if they declined (Discuss DNR or withdrawal of care, Hospice)? DNR status @ -No What co-morbidities impacted this encounter? (DM, HTN, Smoking, COPD, CAD, Cancer, CVA, ARF, Chemo, Hep., AIDS, mental health diagnosis, sleep apnea, morbid obesity)? @ -History of renal transplant Was patient admitted / discharged? Hospital course, mention meds given and route, prescriptions, significant lab abnormalities, going to OR and other pertinent info. @ -Patient presents for urgent care with nausea and decreased appetite. They had concerns for high blood pressure. Repeat blood pressure 138/88. Workup otherwise unremarkable. Patient reevaluated and feeling much better and comfortable with discharge home. Patient updated on results and need for close follow-up, especially with his senior oracle dba Undiagnosed new problem with uncertain prognosis? @ -No Drug Therapy requiring intensive monitoring for toxicity (Heparin, Nitro, Insulin, Cardizem)? @ -No Were any procedures done? @ -No Diagnosis/symptom? @ -Nausea, hypertension Acute, or Chronic, or Acute on Chronic? @ -Acute, acute Uncomplicated (without systemic symptoms) or Complicated (systemic symptoms)? @ -Default Side effects of treatment? @ -No Exacerbation, Progression, or Severe Exacerbation? @ -No Poses a threat to life or bodily function? How? (Chest pain, [place], [place], pneumonia, PE, COPD, DKA, ARF, appy, cholecystitis, CVA, Diverticulitis, Homicidal, Suicidal, threat to staff... and all critical care pts) @ -No - Lab Data Result diagrams: 11/22/24 14:54 11/22/24 14:54 Lab Results 11/22/24 11/22/24 Range/Units 14:54 14:54 WBC 8.95 (4.50-10.00) 10*3/uL RBC 5.14 (4.40-5.60) 10*6/uL Hgb 16.1 (13.0-17.0) g/dL Hct 46.4 (39.6-50.0) % MCV 90.3 (80.0-97.0) fL MCH 31.3 (27.0-32.0) pg MCHC 34.7 (32.0-37.0) g/dL Plt Count 265 (140-440) 10*3/uL MPV 9.8 (9.5-12.2) fL Immature Gran % (Auto) 0.2 % Neutrophils % 69.9 % Lymphocytes % 18.0 % Monocytes % 11.5 % Eosinophils % 0.0 % Basophils % 0.4 % Immature Gran # 0.02 (0.00-0.04) 10*3/uL Neutrophils # 6.25 (1.80-7.70) 10*3/uL Lymphocytes # 1.61 (0.90-5.00) 10*3/uL Monocytes # 1.03 H (0.20-1.00) 10*3/uL Eosinophils # 0.00 L (0.04-0.35) 10*3/uL Basophils # 0.04 (0.00-0.10) 10*3/uL Sodium 140 (137-145) mmol/L Potassium 4.7 (3.5-5.1) mmol/L Chloride 105 (98-107) mmol/L Carbon Dioxide 25 (22-30) mmol/L Anion Gap 10 mmol/L BUN 17 (9-20) mg/dL Creatinine 1.03 (0.66-1.25) mg/dL Est GFR (CKD-EPI)AfAm >90 (>60 ml/min/1.73 sqM) Est GFR (CKD-EPI)NonAf >90 (>60 ml/min/1.73 sqM) Glucose 83 (74-99) mg/dL Calcium 10.4 H (8.4-10.2) mg/dL Magnesium 1.6 (1.6-2.3) mg/dL Total Bilirubin 0.6 (0.2-1.3) mg/dL AST 26 (17-59) U/L ALT 20 (4-49) U/L Alkaline Phosphatase 80 (38-126) U/L Total Protein 8.4 H (6.3-8.2) g/dL Albumin 4.9 (3.5-5.0) g/dL Disposition Clinical Impression: Nausea Disposition: HOME SELF-CARE Condition: Stable Instructions (If sedation given, give patient instructions): Acute Nausea and Vomiting (ED) Additional Instructions: Prescription for nausea medicine sent to pharmacy. Please do follow-up with your primary care physician in the next couple of days for recheck. Please also follow-up with your senior oracle dba and have your blood pressure rechecked. Return for uncontrolled blood pressure, vomiting, worsening or changing symptoms or other concerns. Prescriptions: Ondansetron Odt [Zofran Odt] 4 mg PO Q8HR PRN #10 tab PRN Reason: Nausea Is patient prescribed a controlled substance at d/c from ED?: No Referrals: Tripp Crowley DO [Primary Care Provider] - 1-2 days Time of Disposition: 16:27
[2024-11-22] MEDS: FAMOTIDINE 20 MG/2 ML VIAL IV STA (14:49)
[2024-11-22] MEDS: ONDANSETRON 4 MG/2 ML VIAL IVP STA (14:49)
[2024-11-22] MEDS: SODIUM CHLORIDE 0.9% 1,000 ML IV SCH (14:49)
[2024-11-22 15:17] VITALS: PULSE 85
[2024-11-22 15:18] LABS: Basophils # (A) 0.04 10*3/uL (0.00-0.10); Basophils % (A) 0.4 %; HCT 46.4 % (39.6-50.0); HGB 16.1 g/dL (13.0-17.0); Lymphocytes # (A) 1.61 10*3/uL (0.90-5.00); MCH 31.3 pg (27.0-32.0); MCHC 34.7 g/dL (32.0-37.0); MCV 90.3 fL (80.0-97.0); Mean Platelet Volume 9.8 fL (9.5-12.2); Monocytes # (A) 1.03 10*3/uL (0.20-1.00); Monocytes % (A) 11.5 %; Neutrophils # (A) 6.25 10*3/uL (1.80-7.70); Neutrophils % (A) 69.9 %; Platelet Count 265 10*3/uL (140-440); RBC 5.14 10*6/uL (4.40-5.60); WBC 8.95 10*3/uL (4.50-10.00)
[2024-11-22 15:35] LABS: ALT 20 U/L (4-49); AST 26 U/L (17-59); African American GFR (CKD) >90 (>60 ml/min/1.73 sqM); Albumin 4.9 g/dL (3.5-5.0); Alkaline Phosphatase 80 U/L (38-126); Anion Gap 10 mmol/L; Blood Urea Nitrogen 17 mg/dL (9-20); Calcium 10.4 mg/dL (8.4-10.2); Carbon Dioxide 25 mmol/L (22-30); Chloride 105 mmol/L (98-107); Glucose 83 mg/dL (74-99); Magnesium 1.6 mg/dL (1.6-2.3); Non-African American GFR(CKD) >90 (>60 ml/min/1.73 sqM); Potassium 4.7 mmol/L (3.5-5.1); Sodium 140 mmol/L (137-145); Total Bilirubin 0.6 mg/dL (0.2-1.3); Total Protein 8.4 g/dL (6.3-8.2)
[2024-11-22 16:27] LABS: Appearance,Urine Clear (Clear); Bilirubin,Urine Negative (Negative); Blood,Urine Negative (Negative); Color,Urine Light Yellow; Glucose,Urine (UA) Negative (Negative); Ketones,Urine Negative (Negative); Leukocyte Esterase,Urine Negative (Negative); Nitrite,Urine Negative (Negative); Protein,Urine Negative (Negative); Specific Gravity,Urine 1.019 (1.001-1.035); Urobilinogen,Urine <2.0 mg/dL (<2.0)
[2024-11-22 16:35] VITALS: BP 144/92; RESP 16; TEMP 97
== END 2024-11-22 16:38 | disposition home or self-care (01) ==
LOC: EC 14:24
DX: R11.2 Nausea with vomiting, unspecified (principal); Z94.0 Kidney transplant status; Z91.041 Radiographic dye allergy status; Z91.018 Allergy to other foods; Z91.013 Allergy to seafood
CPT/HCPCS: 36415; 93005; 80053; 83735; 85025; 81003; 99284; 96374; 96375; 96361 ×2; J2405; J1308